=== PATIENT | female | born 1935 | race Caucasian/White ===

== ENCOUNTER 2018-03-18 14:34 | Inpatient (IN) | payer MEDICARE, OTHER ==
[~2018-03-18] VITALS: Ht 167.6 cm; Wt 86.9 kg
[2018-03-18] MEDS ORDERED: TIOT185 IH (15:04)
[2018-03-18] MEDS ORDERED: ALBU8HFA IH (15:04)
[2018-03-18] MEDS ORDERED: BUPR75 PO (15:04)
[2018-03-18] MEDS ORDERED: ATEN25TA PO (15:04)
[2018-03-18] MEDS ORDERED: MethylPREDNISolone SOD SUCC 125 MG/2 ML VIAL IVP ONE (16:00)
[2018-03-18] MEDS ORDERED: ALBUTEROL SULFATE 5 MG/ML 20 ML NEB SOLN [BULK] NEB ONE (16:00)
[2018-03-18] MEDS ORDERED: IPRATROPIUM BROMIDE 0.5 MG/2.5 ML NEB SOLUTION NEB ONE (16:00)
[2018-03-18] MEDS ORDERED: SODIUM CHLORIDE 0.9% 1,000 ML IV ONE (17:00)
[2018-03-18 17:07] LABS: BASOPHILS % (AUTO) 1.1 % (0.0-2.0); EOSINOPHILS % (AUTO) 0.4 % (1.0-6.0); HEMATOCRIT 37.1 % (36-46); HEMOGLOBIN 12.7 g/dL (12.0-16.0); LYMPHOCYTES # (AUTO) 1.1 K/uL (1.0-4.8); LYMPHOCYTES % (AUTO) 6.4 % (22.0-44.0); MEAN CORPUSCULAR HEMOGLOBIN 29.1 pg (26.0-34.0); MEAN CORPUSCULAR HGB CONC 34.3 G/dL (31.0-37.0); MEAN CORPUSCULAR VOLUME 85 fL (80-100); MONOCYTES # (AUTO) 1.3 K/uL (0.1-1.0); MONOCYTES % (AUTO) 7.9 % (2.0-9.0); NEUTROPHILS # (AUTO) 14.4 K/uL (1.8-7.7); NEUTROPHILS % (AUTO) 84.2 % (40.0-70.0); PLATELET COUNT (AUTO) 490 K/uL (150-450); RED BLOOD CELL COUNT(AUTO) 4.38 MIL/uL (4.00-5.20); RED CELL DISTRIBUTION WIDTH 14.1 % (11.5-14.5)
[2018-03-18 17:12] LABS: CALCIUM, TOTAL 9.6 mg/dL (8.8-10.5); CREATININE 3.73 mg/dL (0.60-1.30)
[2018-03-18] MEDS ORDERED: CefTRIAXone SODIUM 1 GM in DEXTROSE 5%-WATER 10 ML IV ONE (17:15)
[2018-03-18] MEDS ORDERED: AZITHROMYCIN 500 MG/NS 250 ML IV ONE (17:15)
[2018-03-18 17:18] LABS: ALBUMIN 2.7 g/dL (3.4-5.0); BILIRUBIN,TOTAL 1.7 mg/dL (0.1-1.0); TOTAL PROTEIN, SERUM 8.9 g/dL (6.4-8.2)
[2018-03-18] MEDS ORDERED: 0.9% SODIUM CHLORIDE 10 ML SYRINGE IVP PRN ×2 (18:15→22:00)
[2018-03-18] MEDS ORDERED: ACETAMINOPHEN 325 MG TABLET PO PRN (18:15)
[2018-03-18] MEDS ORDERED: POTASSIUM CHLORIDE 20 MEQ ER TABLET PO ONE (18:15)
[2018-03-18 18:49] VITALS: BP 113/55
[2018-03-18] MEDS ORDERED: ALBUTEROL SULFATE 2.5 MG/0.5 ML NEB SOLUTION NEB SCH (19:00)
[2018-03-18] MEDS ORDERED: IPRATROPIUM BROMIDE 0.5 MG/2.5 ML NEB SOLUTION NEB SCH (19:00)
[2018-03-18 20:29] VITALS: BP 106/50
[2018-03-18] MEDS: DOCUSATE SODIUM 100 MG CAPSULE PO SCH (22:00)
[2018-03-18] MEDS ORDERED: IPRATROPIUM BROMIDE 0.5 MG/2.5 ML NEB SOLUTION NEB PRN (22:00)
[2018-03-18] MEDS ORDERED: ALBUTEROL SULFATE HFA 90 MCG/PUFF 8 GM INHALER IH PRN (22:00)
[2018-03-18] MEDS ORDERED: ALBUTEROL SULFATE 2.5 MG/0.5 ML NEB SOLUTION NEB PRN (22:00)
[2018-03-18] MEDS: ZOLPIDEM TARTRATE 5 MG TABLET PO PRN (22:32)
[2018-03-18] MEDS: MethylPREDNISolone SOD SUCC 40 MG/ML VIAL IVP SCH (23:39)
[2018-03-18] MEDS: HEPARIN SODIUM,PORCINE 5,000 UNITS/ML VIAL SQ SCH (23:39)
[2018-03-19 00:47] VITALS: BP 108/55
[2018-03-19] MEDS: IPRATROPIUM BROMIDE 0.5 MG/2.5 ML NEB SOLUTION NEB SCH ×4 (02:39→20:02)
[2018-03-19] MEDS: ALBUTEROL SULFATE 2.5 MG/0.5 ML NEB SOLUTION NEB SCH ×4 (02:39→20:02)
[2018-03-19 04:11] VITALS: BP 113/57
[2018-03-19 07:37] VITALS: BP 124/58
[2018-03-19 07:37] LABS: BASOPHILS % (AUTO) 0.3 % (0.0-2.0); EOSINOPHILS % (AUTO) 0 % (1.0-6.0); HEMATOCRIT 32.8 % (36-46); HEMOGLOBIN 11.5 g/dL (12.0-16.0); LYMPHOCYTES # (AUTO) 0.6 K/uL (1.0-4.8); LYMPHOCYTES % (AUTO) 6.2 % (22.0-44.0); MEAN CORPUSCULAR HEMOGLOBIN 29.8 pg (26.0-34.0); MEAN CORPUSCULAR VOLUME 85 fL (80-100); MONOCYTES # (AUTO) 0.2 K/uL (0.1-1.0); MONOCYTES % (AUTO) 2.2 % (2.0-9.0); NEUTROPHILS # (AUTO) 8.4 K/uL (1.8-7.7); PLATELET COUNT (AUTO) 391 K/uL (150-450); RED BLOOD CELL COUNT(AUTO) 3.86 MIL/uL (4.00-5.20); RED CELL DISTRIBUTION WIDTH 13.5 % (11.5-14.5)
[2018-03-19 07:46] LABS: NEUTROPHILS % (AUTO) 91.3 % (40.0-70.0)
[2018-03-19 08:10] LABS: ALBUMIN 2.2 g/dL (3.4-5.0); BILIRUBIN,TOTAL 0.5 mg/dL (0.1-1.0); CREATININE 3.04 mg/dL (0.60-1.30); MAGNESIUM 1.6 mg/dL (1.80-2.40); POTASSIUM 3.6 mmol/L (3.5-5.1); TOTAL PROTEIN, SERUM 7.4 g/dL (6.4-8.2)
[2018-03-19] MEDS: TIOTROPIUM BROMIDE 18 MCG/INH HANDIHALER [5] IH SCH (09:00)
[2018-03-19] MEDS: DOCUSATE SODIUM 100 MG CAPSULE PO SCH ×2 (09:00→21:43)
[2018-03-19] MEDS: MethylPREDNISolone SOD SUCC 40 MG/ML VIAL IVP SCH ×2 (09:06→17:48)
[2018-03-19] MEDS: HEPARIN SODIUM,PORCINE 5,000 UNITS/ML VIAL SQ SCH ×2 (09:07→17:49)
[2018-03-19] MEDS: BuPROPion HCL 75 MG TABLET PO SCH ×3 (09:08→21:43)
[2018-03-19] MEDS: PANTOPRAZOLE SODIUM 40 MG/VIAL IVP SCH (09:08)
[2018-03-19] MEDS: ATENOLOL 25 MG TABLET PO SCH (09:09)
[2018-03-19 11:00] VITALS: BP 116/64
[2018-03-19] MEDS ORDERED: MAGNESIUM SULFATE 2 GM in DEXTROSE 5%-WATER 50 ML IV ONE (12:00)
[2018-03-19 12:17] LABS: APPEARANCE,URINE CLOUDY (CLEAR); CREATININE,URINE RANDOM 147.8 mg/dL (30.0-125.0); GLUCOSE, URINE (UA) NEGATIVE (NEGATIVE); KETONES,URINE NEGATIVE (NEGATIVE); LEUKOCYTE ESTERASE ,URINE MODERATE (NEGATIVE); NITRATE,URINE NEGATIVE (NEGATIVE); OCCULT BLOOD,URINE TRACE (NEGATIVE); PH,URINE 5.5 (5.0-8.0); PROTEIN,URINE NEGATIVE (NEGATIVE); SODIUM,URINE RANDOM 15 mmol/l (20-110)
[2018-03-19 12:21] LABS: BILIRUBIN,URINE PRELIM. POSITIVE (NEGATIVE)
[2018-03-19 12:28] LABS: BACTERIA,URINE Many /HPF (None Seen); SQUAMOUS EPITHELIAL CELL,UR Moderate /LPF (None Seen); WBC,URINE 26-50 /HPF (0-5)
[2018-03-19] MEDS ORDERED: SODIUM CHLORIDE 0.9% 250 ML IV ONE (13:20)
[2018-03-19 15:26] VITALS: BP 116/60
[2018-03-19] MEDS: CefTRIAXone SODIUM 1 GM in DEXTROSE 5%-WATER 10 ML IV SCH (17:47)
[2018-03-19] MEDS: AZITHROMYCIN 500 MG/NS 250 ML IV SCH (17:48)
[2018-03-19 21:20] VITALS: BP 125/57
[2018-03-20] VITALS (8 sets, daily range): BP systolic 114–152; BP diastolic 52–79
[2018-03-20] MEDS: HEPARIN SODIUM,PORCINE 5,000 UNITS/ML VIAL SQ SCH ×4 (00:11→23:37)
[2018-03-20] MEDS: MethylPREDNISolone SOD SUCC 40 MG/ML VIAL IVP SCH ×4 (00:11→23:36)
[2018-03-20] MEDS: IPRATROPIUM BROMIDE 0.5 MG/2.5 ML NEB SOLUTION NEB SCH ×4 (02:14→20:10)
[2018-03-20] MEDS: ALBUTEROL SULFATE 2.5 MG/0.5 ML NEB SOLUTION NEB SCH ×4 (02:15→20:10)
[2018-03-20] MEDS: ACETAMINOPHEN 325 MG TABLET PO PRN ×2 (05:10→18:43)
[2018-03-20 06:17] LABS: BASOPHILS % (AUTO) 0.5 % (0.0-2.0); EOSINOPHILS % (AUTO) 0 % (1.0-6.0); HEMATOCRIT 32.6 % (36-46); HEMOGLOBIN 11.2 g/dL (12.0-16.0); LYMPHOCYTES # (AUTO) 0.8 K/uL (1.0-4.8); LYMPHOCYTES % (AUTO) 5.1 % (22.0-44.0); MEAN CORPUSCULAR HEMOGLOBIN 29.5 pg (26.0-34.0); MEAN CORPUSCULAR HGB CONC 34.4 G/dL (31.0-37.0); MEAN CORPUSCULAR VOLUME 86 fL (80-100); MONOCYTES # (AUTO) 0.5 K/uL (0.1-1.0); MONOCYTES % (AUTO) 3.3 % (2.0-9.0); NEUTROPHILS # (AUTO) 13.7 K/uL (1.8-7.7); PLATELET COUNT (AUTO) 453 K/uL (150-450); RED BLOOD CELL COUNT(AUTO) 3.81 MIL/uL (4.00-5.20); RED CELL DISTRIBUTION WIDTH 13.9 % (11.5-14.5)
[2018-03-20 06:39] LABS: CALCIUM, TOTAL 9.7 mg/dL (8.8-10.5); CREATININE 2.13 mg/dL (0.60-1.30); MAGNESIUM 1.6 mg/dL (1.80-2.40); POTASSIUM 3.5 mmol/L (3.5-5.1)
[2018-03-20 06:49] LABS: NEUTROPHILS % (AUTO) 91.1 % (40.0-70.0)
[2018-03-20] MEDS: DOCUSATE SODIUM 100 MG CAPSULE PO SCH ×2 (07:48→19:54)
[2018-03-20] MEDS: ATENOLOL 25 MG TABLET PO SCH (07:48)
[2018-03-20] MEDS: BuPROPion HCL 75 MG TABLET PO SCH ×3 (07:48→19:54)
[2018-03-20] MEDS: PANTOPRAZOLE SODIUM 40 MG/VIAL IVP SCH (07:48)
[2018-03-20] MEDS ORDERED: MAGNESIUM SULFATE 3 GM in DEXTROSE 5%-WATER 100 ML IV ONE (09:30)
[2018-03-20] MEDS ORDERED: HYDROCODONE/ACETAMINOPHEN 5-325 MG TABLET PO ONE (09:45)
[2018-03-20] MEDS: TIOTROPIUM BROMIDE 18 MCG/INH HANDIHALER [5] IH SCH (10:57)
[2018-03-20] MEDS: SODIUM CHLORIDE 0.9% 1,000 ML IV SCH (14:19)
[2018-03-20] MEDS: AZITHROMYCIN 500 MG/NS 250 ML IV SCH (16:59)
[2018-03-20] MEDS: CefTRIAXone SODIUM 1 GM in DEXTROSE 5%-WATER 10 ML IV SCH (17:00)
[2018-03-20] MEDS: OXYGEN THERAPY IH SCH (19:57)
[2018-03-20] MEDS: ZOLPIDEM TARTRATE 5 MG TABLET PO PRN (23:37)
[2018-03-21] MEDS: ALBUTEROL SULFATE 2.5 MG/0.5 ML NEB SOLUTION NEB SCH ×4 (02:25→19:30)
[2018-03-21] MEDS: IPRATROPIUM BROMIDE 0.5 MG/2.5 ML NEB SOLUTION NEB SCH ×4 (02:25→19:30)
[2018-03-21 05:17] VITALS: BP 139/86
[2018-03-21] MEDS: SODIUM CHLORIDE 0.9% 1,000 ML IV SCH ×2 (05:37→20:42)
[2018-03-21 06:37] LABS: CALCIUM, TOTAL 9.2 mg/dL (8.8-10.5); CREATININE 1.6 mg/dL (0.60-1.30); MAGNESIUM 1.8 mg/dL (1.80-2.40); POTASSIUM 3.9 mmol/L (3.5-5.1)
[2018-03-21 07:30] LABS: BASOPHILS % (AUTO) 0.3 % (0.0-2.0); EOSINOPHILS % (AUTO) 0.2 % (1.0-6.0); HEMATOCRIT 34.9 % (36-46); HEMOGLOBIN 11.6 g/dL (12.0-16.0); LYMPHOCYTES # (AUTO) 0.6 K/uL (1.0-4.8); LYMPHOCYTES % (AUTO) 5.3 % (22.0-44.0); MEAN CORPUSCULAR HEMOGLOBIN 28.6 pg (26.0-34.0); MEAN CORPUSCULAR HGB CONC 33.2 G/dL (31.0-37.0); MEAN CORPUSCULAR VOLUME 86 fL (80-100); MONOCYTES # (AUTO) 0.5 K/uL (0.1-1.0); MONOCYTES % (AUTO) 4.6 % (2.0-9.0); NEUTROPHILS # (AUTO) 10.3 K/uL (1.8-7.7); PLATELET COUNT (AUTO) 417 K/uL (150-450); RED BLOOD CELL COUNT(AUTO) 4.05 MIL/uL (4.00-5.20)
[2018-03-21 07:31] LABS: NEUTROPHILS % (AUTO) 89.6 % (40.0-70.0)
[2018-03-21 07:41] VITALS: BP 133/76
[2018-03-21] MEDS: MethylPREDNISolone SOD SUCC 40 MG/ML VIAL IVP SCH ×3 (08:18→23:56)
[2018-03-21] MEDS: OXYGEN THERAPY IH SCH ×2 (08:18→19:31)
[2018-03-21] MEDS: HEPARIN SODIUM,PORCINE 5,000 UNITS/ML VIAL SQ SCH ×3 (08:18→23:56)
[2018-03-21] MEDS: ATENOLOL 25 MG TABLET PO SCH (09:22)
[2018-03-21] MEDS: PANTOPRAZOLE SODIUM 40 MG/VIAL IVP SCH (09:22)
[2018-03-21] MEDS: BuPROPion HCL 75 MG TABLET PO SCH ×3 (09:23→20:43)
[2018-03-21] MEDS: DOCUSATE SODIUM 100 MG CAPSULE PO SCH ×2 (09:23→20:43)
[2018-03-21] MEDS: TIOTROPIUM BROMIDE 18 MCG/INH HANDIHALER [5] IH SCH (09:24)
[2018-03-21] MEDS ORDERED: GuaiFENesin/D-METHORPHAN [SUGAR-FREE] 200-20MG/10 ML SYRUP UDCUP PO PRN (10:45)
[2018-03-21] MEDS: ACETAMINOPHEN 325 MG TABLET PO PRN (11:06)
[2018-03-21 11:25] VITALS: BP 143/82
[2018-03-21 15:57] VITALS: BP 143/79
[2018-03-21] MEDS: CefTRIAXone SODIUM 1 GM in DEXTROSE 5%-WATER 10 ML IV SCH (16:36)
[2018-03-21] MEDS: AZITHROMYCIN 500 MG/NS 250 ML IV SCH (16:41)
[2018-03-21] MEDS: ONDANSETRON HCL 4 MG/2 ML VIAL IVP PRN (18:35)
[2018-03-21 20:31] VITALS: BP 134/69
[2018-03-21] MEDS: ZOLPIDEM TARTRATE 5 MG TABLET PO PRN (20:43)
[2018-03-22 00:30] VITALS: BP 149/84
[2018-03-22] MEDS: IPRATROPIUM BROMIDE 0.5 MG/2.5 ML NEB SOLUTION NEB SCH ×4 (02:11→20:12)
[2018-03-22] MEDS: ALBUTEROL SULFATE 2.5 MG/0.5 ML NEB SOLUTION NEB SCH ×4 (02:11→20:12)
[2018-03-22 04:27] VITALS: BP 132/63
[2018-03-22 07:45] LABS: CALCIUM, TOTAL 8.8 mg/dL (8.8-10.5); CREATININE 1.43 mg/dL (0.60-1.30); MAGNESIUM 1.2 mg/dL (1.80-2.40); PHOSPHORUS 2.5 mg/dL (2.5-4.9); POTASSIUM 3.8 mmol/L (3.5-5.1)
[2018-03-22 07:49] VITALS: BP 142/81
[2018-03-22] MEDS: ATENOLOL 25 MG TABLET PO SCH (07:58)
[2018-03-22] MEDS: PredniSONE 20 MG TABLET PO SCH (07:59)
[2018-03-22] MEDS: BuPROPion HCL 75 MG TABLET PO SCH ×3 (07:59→20:44)
[2018-03-22] MEDS: TIOTROPIUM BROMIDE 18 MCG/INH HANDIHALER [5] IH SCH (07:59)
[2018-03-22] MEDS: PANTOPRAZOLE SODIUM 40 MG/VIAL IVP SCH (08:00)
[2018-03-22] MEDS: DOCUSATE SODIUM 100 MG CAPSULE PO SCH ×2 (08:00→20:44)
[2018-03-22] MEDS: HEPARIN SODIUM,PORCINE 5,000 UNITS/ML VIAL SQ SCH ×2 (08:00→16:10)
[2018-03-22] MEDS: OXYGEN THERAPY IH SCH ×2 (08:01→20:45)
[2018-03-22] MEDS: MethylPREDNISolone SOD SUCC 40 MG/ML VIAL IVP SCH (08:01)
[2018-03-22] MEDS ORDERED: MAGNESIUM SULFATE 3 GM in DEXTROSE 5%-WATER 100 ML IV ONE (09:15)
[2018-03-22] MEDS: SODIUM CHLORIDE 0.9% 1,000 ML IV SCH (09:36)
[2018-03-22] MEDS: ACETAMINOPHEN 325 MG TABLET PO PRN ×2 (09:36→13:58)
[2018-03-22 12:17] VITALS: BP 130/77
[2018-03-22 15:03] VITALS: BP 153/63
[2018-03-22] MEDS: CefTRIAXone SODIUM 1 GM in DEXTROSE 5%-WATER 10 ML IV SCH (16:10)
[2018-03-22] MEDS: AZITHROMYCIN 500 MG/NS 250 ML IV SCH (16:13)
[2018-03-22] MEDS: ONDANSETRON HCL 4 MG/2 ML VIAL IVP PRN (17:33)
[2018-03-22 19:36] VITALS: BP 140/83
[2018-03-22] MEDS: ZOLPIDEM TARTRATE 5 MG TABLET PO PRN (20:51)
[2018-03-23 00:06] VITALS: BP 130/74
[2018-03-23] MEDS: HEPARIN SODIUM,PORCINE 5,000 UNITS/ML VIAL SQ SCH ×3 (00:10→16:12)
[2018-03-23] MEDS: IPRATROPIUM BROMIDE 0.5 MG/2.5 ML NEB SOLUTION NEB SCH ×4 (02:00→20:39)
[2018-03-23] MEDS: ALBUTEROL SULFATE 2.5 MG/0.5 ML NEB SOLUTION NEB SCH ×4 (02:00→20:39)
[2018-03-23 04:20] VITALS: BP 132/76
[2018-03-23] MEDS: SODIUM CHLORIDE 0.9% 1,000 ML IV SCH (04:27)
[2018-03-23 07:18] LABS: CALCIUM, TOTAL 8.5 mg/dL (8.8-10.5); CREATININE 1.25 mg/dL (0.60-1.30); MAGNESIUM 1.4 mg/dL (1.80-2.40); PHOSPHORUS 2.3 mg/dL (2.5-4.9); POTASSIUM 3.4 mmol/L (3.5-5.1)
[2018-03-23 08:07] LABS: ORGANISM ID Not indicated.; S PNEUMO SOURCE Urine; STREP PNEUMONIAE AG URINE Negative (Negative); STREP.PNEUMO BODY FLUID CULT. Not Indicated
[2018-03-23 08:21] VITALS: BP 152/80
[2018-03-23] MEDS: OXYGEN THERAPY IH SCH ×2 (08:25→20:13)
[2018-03-23] MEDS: ATENOLOL 25 MG TABLET PO SCH (08:28)
[2018-03-23] MEDS: PredniSONE 20 MG TABLET PO SCH (08:28)
[2018-03-23] MEDS: DOCUSATE SODIUM 100 MG CAPSULE PO SCH ×2 (08:28→20:12)
[2018-03-23] MEDS: BuPROPion HCL 75 MG TABLET PO SCH ×3 (08:28→20:41)
[2018-03-23] MEDS: TIOTROPIUM BROMIDE 18 MCG/INH HANDIHALER [5] IH SCH (08:28)
[2018-03-23] MEDS: PANTOPRAZOLE SODIUM 40 MG/VIAL IVP SCH (08:28)
[2018-03-23] MEDS ORDERED: POTASSIUM CHLORIDE 20 MEQ ER TABLET PO ONE (08:45)
[2018-03-23] MEDS ORDERED: MAGNESIUM SULFATE 4 GM/WATER 100 ML IV ONE (08:45)
[2018-03-23 10:16] LABS: LEGIONELLA PNEUMO AG URINE Negative (Negative)
[2018-03-23] MEDS ORDERED: SODIUM PHOS,M-BASIC-D-BASIC 20 MMOL in DEXTROSE 5%-WATER 150 ML IV ONE (10:45)
[2018-03-23 12:11] VITALS: BP 144/72
[2018-03-23 15:08] VITALS: BP 125/70
[2018-03-23] MEDS: CefTRIAXone SODIUM 1 GM in DEXTROSE 5%-WATER 10 ML IV SCH (16:13)
[2018-03-23] MEDS: AZITHROMYCIN 500 MG/NS 250 ML IV SCH (17:12)
[2018-03-23] MEDS: ONDANSETRON HCL 4 MG/2 ML VIAL IVP PRN (17:57)
[2018-03-23 20:05] VITALS: BP 134/82
[2018-03-23] MEDS: ACETAMINOPHEN 325 MG TABLET PO PRN (20:09)
[2018-03-23] MEDS: ZOLPIDEM TARTRATE 5 MG TABLET PO PRN (20:12)
[2018-03-24 00:02] VITALS: BP 127/75
[2018-03-24] MEDS: HEPARIN SODIUM,PORCINE 5,000 UNITS/ML VIAL SQ SCH ×2 (00:23→08:33)
[2018-03-24] MEDS: ALBUTEROL SULFATE 2.5 MG/0.5 ML NEB SOLUTION NEB SCH ×3 (02:18→14:00)
[2018-03-24] MEDS: IPRATROPIUM BROMIDE 0.5 MG/2.5 ML NEB SOLUTION NEB SCH ×3 (02:19→14:00)
[2018-03-24 05:27] VITALS: BP 142/67
[2018-03-24 07:07] VITALS: BP 137/68
[2018-03-24] MEDS: OXYGEN THERAPY IH SCH (08:00)
[2018-03-24] MEDS: DOCUSATE SODIUM 100 MG CAPSULE PO SCH (08:33)
[2018-03-24] MEDS: TIOTROPIUM BROMIDE 18 MCG/INH HANDIHALER [5] IH SCH (08:33)
[2018-03-24] MEDS: PANTOPRAZOLE SODIUM 40 MG/VIAL IVP SCH (08:33)
[2018-03-24] MEDS: PredniSONE 20 MG TABLET PO SCH (08:34)
[2018-03-24] MEDS: BuPROPion HCL 75 MG TABLET PO SCH (08:34)
[2018-03-24] MEDS: ATENOLOL 25 MG TABLET PO SCH (08:34)
[2018-03-24 10:58] VITALS: BP 132/80
[2018-03-24] MEDS ORDERED: PRED10TA3 PO (12:25)
[2018-03-24] MEDS ORDERED: PRED20TA3 PO (12:27)
[2018-03-24] MEDS ORDERED: LEVO500 PO (12:30)
[2018-03-24] MEDS: ACETAMINOPHEN 325 MG TABLET PO PRN (12:53)
== END 2018-03-24 14:55 | disposition home or self-care (01) | DRG 682 ==
LOC: EDBD 14:38 → EMS 14:38 → 5S 17:36 → 5N 03-19 18:30
PROVIDERS: ADMIT Hospitalist; ATTEND Hospitalist
DX: N17.9 Acute kidney failure, unspecified (principal); J18.9 Pneumonia, unspecified organism; J96.20 Acute and chronic respiratory failure, unspecified whether with hypoxia or hypercapnia; J44.0 Chronic obstructive pulmonary disease with (acute) lower respiratory infection; J44.1 Chronic obstructive pulmonary disease with (acute) exacerbation; N39.0 Urinary tract infection, site not specified; E86.0 Dehydration; D35.01 Benign neoplasm of right adrenal gland; D64.9 Anemia, unspecified; E83.42 Hypomagnesemia; I12.9 Hypertensive chronic kidney disease with stage 1 through stage 4 chronic kidney disease, or unspecified chronic kidney disease; D71 Functional disorders of polymorphonuclear neutrophils; N18.9 Chronic kidney disease, unspecified; Z79.51 Long term (current) use of inhaled steroids; Z82.49 Family history of ischemic heart disease and other diseases of the circulatory system
CPT/HCPCS: 71250; 76770; 82570; 83735; 84100; 84132; 84300; 84540; 86480; 87015; 87040; 87086; 87206; 87449; 87899; 89050; 93005; 93306; 94640; 94644; 96374; 96375; 99285; C9113; J0456; J0696; J1644; J2405; J2920; J2930; J3475; J3490; J7030; J7050; J7060

== ENCOUNTER 2018-04-06 16:49 | Emergency (ER) | payer MEDICARE, OTHER ==
[~2018-04-06] VITALS: Ht 167.6 cm; Wt 83.6 kg
[~2018-04-06 16:49] MED LIST: ALBU8HFA IH; ATEN25TA PO; BUPR75 PO; KDUR10 PO; LEVO500 PO; LORA1TAB3 PO; PRED20TA3 PO; TIOT185 IH; [UNRECOGNIZED DRUG - CODE] PO
[2018-04-06 18:55] VITALS: BP 141/74
== END 2018-04-06 19:03 | disposition home or self-care (01) ==
LOC: EMS 16:50
DX: L03.115 Cellulitis of right lower limb (principal); R23.8 Other skin changes; I10 Essential (primary) hypertension; J44.9 Chronic obstructive pulmonary disease, unspecified; Z79.899 Other long term (current) drug therapy
CPT/HCPCS: 10060; 99283

== ENCOUNTER 2018-06-12 15:02 | Emergency (ER) | payer MEDICARE, OTHER ==
[~2018-06-12] VITALS: Ht 167.6 cm; Wt 81.8 kg
[~2018-06-12 15:02] MED LIST changes: -LEVO500 PO; -PRED20TA3 PO; -[UNRECOGNIZED DRUG - CODE] PO
[2018-06-12] MEDS ORDERED: SERT50TA12 PO (15:33)
[2018-06-12] MEDS ORDERED: LOSA1TAB37 PO (15:33)
[2018-06-12] MEDS ORDERED: OMEP20 PO (15:33)
[2018-06-12] MEDS ORDERED: ATEN50TA PO (15:33)
[2018-06-12] MEDS ORDERED: ADV500 IH (15:33)
[2018-06-12] MEDS ORDERED: TIOT185 IH (15:33)
[2018-06-12 16:21] VITALS: BP 115/65
== END 2018-06-12 16:26 | disposition left against medical advice (07) ==
LOC: EMS 15:04
DX: J44.9 Chronic obstructive pulmonary disease, unspecified (principal); I10 Essential (primary) hypertension; Z79.899 Other long term (current) drug therapy
CPT/HCPCS: 99283

== ENCOUNTER 2018-06-13 14:15 | Emergency (ER) | payer MEDICARE, OTHER ==
[~2018-06-13] VITALS: Ht 167.6 cm; Wt 81.8 kg
[~2018-06-13 14:15] MED LIST changes: +ADV500 IH; -ALBU8HFA IH; -ATEN25TA PO; +ATEN50TA PO; -BUPR75 PO; -KDUR10 PO; -LORA1TAB3 PO; +LOSA1TAB37 PO; +OMEP20 PO; +SERT50TA12 PO
[2018-06-13] MEDS ORDERED: 0.9% SODIUM CHLORIDE 10 ML SYRINGE IVP PRN (16:15)
[2018-06-13 17:02] LABS: BASOPHILS % (AUTO) 0.9 % (0.0-2.0); EOSINOPHILS % (AUTO) 5.3 % (1.0-6.0); HEMATOCRIT 39.9 % (36-46); HEMOGLOBIN 13.6 g/dL (12.0-16.0); LYMPHOCYTES # (AUTO) 1.5 K/uL (1.0-4.8); LYMPHOCYTES % (AUTO) 15.7 % (22.0-44.0); MEAN CORPUSCULAR HEMOGLOBIN 30.2 pg (26.0-34.0); MEAN CORPUSCULAR HGB CONC 34.2 G/dL (31.0-37.0); MEAN CORPUSCULAR VOLUME 88 fL (80-100); MONOCYTES # (AUTO) 0.9 K/uL (0.1-1.0); MONOCYTES % (AUTO) 9.2 % (2.0-9.0); NEUTROPHILS # (AUTO) 6.6 K/uL (1.8-7.7); NEUTROPHILS % (AUTO) 68.9 % (40.0-70.0); PLATELET COUNT (AUTO) 451 K/uL (150-450); RED BLOOD CELL COUNT(AUTO) 4.51 MIL/uL (4.00-5.20); RED CELL DISTRIBUTION WIDTH 14.5 % (11.5-14.5)
[2018-06-13 17:08] LABS: PROTHROMBIN TIME 10.7 SEC (9.4-11.6)
[2018-06-13] MEDS ORDERED: LEVOFLOXACIN 500 MG/D5% WATER 100 ML IV ONE (17:15)
[2018-06-13] MEDS ORDERED: DEXAMETHASONE SOD PHOS 4 MG/ML 5 ML VIAL IVP ONE (17:15)
[2018-06-13] MEDS ORDERED: IPRATROPIUM BROMIDE 0.5 MG/2.5 ML NEB SOLUTION NEB ONE (17:15)
[2018-06-13] MEDS ORDERED: ALBUTEROL SULFATE 2.5 MG/0.5 ML NEB SOLUTION NEB ONE (17:15)
[2018-06-13 17:30] LABS: APPEARANCE,URINE CLOUDY (CLEAR); GLUCOSE, URINE (UA) NEGATIVE (NEGATIVE); KETONES,URINE NEGATIVE (NEGATIVE); LEUKOCYTE ESTERASE ,URINE SMALL (NEGATIVE); NITRATE,URINE NEGATIVE (NEGATIVE); OCCULT BLOOD,URINE NEGATIVE (NEGATIVE); PROTEIN,URINE NEGATIVE (NEGATIVE); UROBILINOGEN,URINE 0.2 mg/dL (<=1.0)
[2018-06-13 17:31] LABS: BILIRUBIN,URINE PRELIM. POSITIVE (NEGATIVE)
[2018-06-13 17:34] LABS: RBC,URINE None Seen /HPF (0-2)
[2018-06-13 17:35] LABS: BACTERIA,URINE Moderate /HPF (None Seen); SQUAMOUS EPITHELIAL CELL,UR Many /LPF (None Seen)
[2018-06-13 17:36] LABS: ANION GAP 10 mmol/L (8-16); CALCIUM, TOTAL 10.2 mg/dL (8.8-10.5); CARBON DIOXIDE 28 mmol/L (22-29); CHLORIDE 98 mmol/L (98-107); CREATININE 2.09 mg/dL (0.60-1.30); GLOMERULAR FILTR. RATE CALC 23 mL/min (>60); GLUCOSE,RANDOM 99 mg/dL (70-110); POTASSIUM 3.5 mmol/L (3.5-5.1); SODIUM SERUM 136 mmol/L (136-145); UREA NITROGEN, BLOOD 33 mg/dL (7-18)
[2018-06-13 17:44] LABS: LACTIC ACID 1.3 mmol/L (0.4-2.0)
[2018-06-13 17:55] LABS: B-TYPE NATRIURETIC PEPTIDE 131 pg/mL (0-100)
[2018-06-13 18:02] LABS: ALANINE AMINOTRANSFERASE 24 U/L (12-78); ALBUMIN 3.2 g/dL (3.4-5.0); ALKALINE PHOSPHATASE 72 U/L (46-116); ASPARTATE AMINOTRANSFERASE 21 U/L (15-37); BILIRUBIN,TOTAL 0.5 mg/dL (0.1-1.0); CREATINE KINASE MB 2.3 ng/mL (0-5); CREATINE KINASE, TOTAL 103 U/L (26-192); TOTAL PROTEIN, SERUM 7.7 g/dL (6.4-8.2)
[2018-06-13 20:00] VITALS: BP 108/60
== END 2018-06-13 20:00 | disposition home or self-care (01) ==
LOC: EMS 14:16
DX: J44.9 Chronic obstructive pulmonary disease, unspecified (principal); J18.9 Pneumonia, unspecified organism; I10 Essential (primary) hypertension; F03.90 Unspecified dementia, unspecified severity, without behavioral disturbance, psychotic disturbance, mood disturbance, and anxiety
CPT/HCPCS: 36415; 71045; 80053; 81001; 82550; 82553; 83605; 83880; 84484; 85025; 85610; 85730; 87040; 87086; 93005; 94060; 94640; 96365; 96375; 99285; J1100; J1956

== ENCOUNTER 2018-09-25 08:48 | Emergency (ER) | payer MEDICARE, OTHER ==
[~2018-09-25] VITALS: Ht 165.1 cm; Wt 68.2 kg
[2018-09-25] MEDS ORDERED: BENZ-51 PO (09:05)
[2018-09-25] MEDS ORDERED: TIOT185 IH (09:05)
[2018-09-25] MEDS ORDERED: FURO20 PO (09:05)
[2018-09-25] MEDS ORDERED: ALBU90AE IH (09:05)
[2018-09-25] MEDS ORDERED: MELA3TAB66 PO (09:05)
[2018-09-25] MEDS ORDERED: IPRATROPIUM BROMIDE 0.5 MG/2.5 ML NEB SOLUTION NEB ONE ×2 (09:15→11:45)
[2018-09-25] MEDS ORDERED: ALBUTEROL SULFATE 2.5 MG/0.5 ML NEB SOLUTION NEB ONE (09:15)
[2018-09-25 10:22] LABS: BASOPHILS % (AUTO) 1.2 % (0.0-2.0); EOSINOPHILS % (AUTO) 13.4 % (1.0-6.0); HEMATOCRIT 39.3 % (36-46); HEMOGLOBIN 13.5 g/dL (12.0-16.0); LYMPHOCYTES # (AUTO) 1.3 K/uL (1.0-4.8); LYMPHOCYTES % (AUTO) 13.9 % (22.0-44.0); MEAN CORPUSCULAR HEMOGLOBIN 29.6 pg (26.0-34.0); MEAN CORPUSCULAR HGB CONC 34.4 G/dL (31.0-37.0); MEAN CORPUSCULAR VOLUME 86 fL (80-100); MONOCYTES # (AUTO) 0.9 K/uL (0.1-1.0); MONOCYTES % (AUTO) 9.2 % (2.0-9.0); NEUTROPHILS # (AUTO) 5.9 K/uL (1.8-7.7); NEUTROPHILS % (AUTO) 62.3 % (40.0-70.0); PLATELET COUNT (AUTO) 392 K/uL (150-450); RED BLOOD CELL COUNT(AUTO) 4.56 MIL/uL (4.00-5.20); RED CELL DISTRIBUTION WIDTH 15.1 % (11.5-14.5)
[2018-09-25 10:29] LABS: CREATININE 1.61 mg/dL (0.60-1.30); POTASSIUM 3.7 mmol/L (3.5-5.1)
[2018-09-25 10:39] LABS: ALBUMIN 3.5 g/dL (3.4-5.0); BILIRUBIN,TOTAL 0.7 mg/dL (0.1-1.0); TOTAL PROTEIN, SERUM 7.3 g/dL (6.4-8.2)
[2018-09-25] MEDS ORDERED: MethylPREDNISolone SOD SUCC 125 MG/2 ML VIAL IVP ONE (11:45)
[2018-09-25] MEDS ORDERED: ALBUTEROL SULFATE 5 MG/ML 20 ML NEB SOLN [BULK] NEB ONE (11:45)
[2018-09-25] MEDS ORDERED: 0.9% SODIUM CHLORIDE 15 ML NEB SOLUTION NEB ONE (11:48)
[2018-09-25 11:52] LABS: GLUCOSE, URINE (UA) NEGATIVE (NEGATIVE); KETONES,URINE TRACE mg/dL (NEGATIVE); LEUKOCYTE ESTERASE ,URINE TRACE (NEGATIVE); NITRATE,URINE NEGATIVE (NEGATIVE); OCCULT BLOOD,URINE NEGATIVE (NEGATIVE); PH,URINE 5.5 (5.0-8.0); PROTEIN,URINE POS 1+ (NEGATIVE); UROBILINOGEN,URINE 0.2 mg/dL (<=1.0)
[2018-09-25 11:55] LABS: APPEARANCE,URINE HAZY (CLEAR); BILIRUBIN,URINE PRELIM. POSITIVE (NEGATIVE)
[2018-09-25 11:56] LABS: BACTERIA,URINE None Seen /HPF (None Seen); RBC,URINE None Seen /HPF (0-2); SQUAMOUS EPITHELIAL CELL,UR Many /LPF (None Seen); WBC,URINE 0-2 /HPF (0-5)
[2018-09-25 14:19] VITALS: BP 128/69
== END 2018-09-25 14:21 | disposition home or self-care (01) ==
LOC: EMS 08:50
DX: J44.1 Chronic obstructive pulmonary disease with (acute) exacerbation (principal); I10 Essential (primary) hypertension; Z79.899 Other long term (current) drug therapy
CPT/HCPCS: 36415; 71045; 80053; 81001; 83880; 84484; 85025; 87040; 93005; 94640; 94644; 96374; 99285; J2930

== ENCOUNTER 2019-01-28 09:33 | Emergency (ER) | payer MEDICARE, OTHER ==
[~2019-01-28] VITALS: Ht 167.6 cm; Wt 74.1 kg
[~2019-01-28 09:33] MED LIST changes: +ALBU90AE IH; +BENZ-51 PO; +FURO20 PO; +MELA3TAB66 PO
[2019-01-28] MEDS ORDERED: LOSA1TAB42 PO (09:59)
[2019-01-28] MEDS ORDERED: 0.9% SODIUM CHLORIDE 15 ML NEB SOLUTION NEB ONE (11:29)
[2019-01-28] MEDS ORDERED: IPRATROPIUM BROMIDE 0.5 MG/2.5 ML NEB SOLUTION NEB ONE (11:30)
[2019-01-28] MEDS ORDERED: ALBUTEROL SULFATE 5 MG/ML 20 ML NEB SOLN [BULK] NEB ONE (11:30)
[2019-01-28] MEDS ORDERED: SODIUM CHLORIDE 0.9% 1,000 ML IV ONE (11:45)
[2019-01-28 12:25] LABS: CREATININE 2.11 mg/dL (0.60-1.30); POTASSIUM 4.3 mmol/L (3.5-5.1)
[2019-01-28 12:36] LABS: ALBUMIN 2.8 g/dL (3.4-5.0); TOTAL PROTEIN, SERUM 7.3 g/dL (6.4-8.2)
[2019-01-28 12:52] LABS: BASOPHILS % (AUTO) 0.3 % (0.0-2.0); EOSINOPHILS % (AUTO) 0.4 % (1.0-6.0); HEMATOCRIT 37.2 % (36-46); HEMOGLOBIN 12.5 g/dL (12.0-16.0); LYMPHOCYTES # (AUTO) 1.2 K/uL (1.0-4.8); LYMPHOCYTES % (AUTO) 11.3 % (22.0-44.0); MEAN CORPUSCULAR HEMOGLOBIN 30.3 pg (26.0-34.0); MEAN CORPUSCULAR HGB CONC 33.7 G/dL (31.0-37.0); MEAN CORPUSCULAR VOLUME 90 fL (80-100); MONOCYTES # (AUTO) 1.4 K/uL (0.1-1.0); MONOCYTES % (AUTO) 13.9 % (2.0-9.0); NEUTROPHILS # (AUTO) 7.6 K/uL (1.8-7.7); NEUTROPHILS % (AUTO) 74.1 % (40.0-70.0); PLATELET COUNT (AUTO) 281 K/uL (150-450); RED BLOOD CELL COUNT(AUTO) 4.13 MIL/uL (4.00-5.20); RED CELL DISTRIBUTION WIDTH 14.7 % (11.5-14.5)
[2019-01-28] MEDS ORDERED: AZITHROMYCIN 250 MG TABLET PO ONE (13:30)
[2019-01-28] MEDS ORDERED: PredniSONE 20 MG TABLET PO ONE (13:30)
[2019-01-28 17:05] VITALS: BP 112/78
== END 2019-01-28 17:10 | disposition home or self-care (01) ==
LOC: EMS 09:33
DX: J44.1 Chronic obstructive pulmonary disease with (acute) exacerbation (principal); J20.9 Acute bronchitis, unspecified; N28.9 Disorder of kidney and ureter, unspecified; R42 Dizziness and giddiness; I10 Essential (primary) hypertension; Z79.899 Other long term (current) drug therapy
CPT/HCPCS: 36415; 71045; 80053; 85025; 93005; 94644; 96360; 96361; 99285; J7030; J7512

== ENCOUNTER 2019-02-11 19:43 | Emergency (ER) | payer MEDICARE, OTHER ==
[~2019-02-11] VITALS: Ht 167.6 cm; Wt 72.7 kg
[~2019-02-11 19:43] MED LIST changes: -LOSA1TAB37 PO; +LOSA1TAB42 PO; -SERT50TA12 PO
[2019-02-11] MEDS ORDERED: TRAM50TA4 PO (20:01)
[2019-02-11] MEDS ORDERED: CLON.5 PO (20:01)
[2019-02-11] MEDS ORDERED: SERT50TA12 PO (20:01)
[2019-02-11] MEDS ORDERED: FURO20 PO (20:04)
[2019-02-11 20:15] LABS: BASOPHILS % (AUTO) 0.7 % (0.0-2.0); EOSINOPHILS % (AUTO) 1.3 % (1.0-6.0); HEMATOCRIT 36.9 % (36-46); HEMOGLOBIN 12.5 g/dL (12.0-16.0); LYMPHOCYTES # (AUTO) 1.5 K/uL (1.0-4.8); MEAN CORPUSCULAR HEMOGLOBIN 29.5 pg (26.0-34.0); MEAN CORPUSCULAR HGB CONC 33.9 G/dL (31.0-37.0); MEAN CORPUSCULAR VOLUME 87 fL (80-100); MONOCYTES % (AUTO) 12.3 % (2.0-9.0); NEUTROPHILS # (AUTO) 5.4 K/uL (1.8-7.7); NEUTROPHILS % (AUTO) 66.7 % (40.0-70.0); PLATELET COUNT (AUTO) 342 K/uL (150-450); RED BLOOD CELL COUNT(AUTO) 4.24 MIL/uL (4.00-5.20); RED CELL DISTRIBUTION WIDTH 14.6 % (11.5-14.5)
[2019-02-11 20:31] LABS: PROTHROMBIN TIME 10.3 SEC (9.4-11.6)
[2019-02-11 20:39] LABS: CALCIUM, TOTAL 9.1 mg/dL (8.8-10.5); CREATININE 1.34 mg/dL (0.60-1.30); POTASSIUM 3.5 mmol/L (3.5-5.1)
[2019-02-11 20:46] LABS: ALBUMIN 2.8 g/dL (3.4-5.0); BILIRUBIN,TOTAL 0.4 mg/dL (0.1-1.0); TOTAL PROTEIN, SERUM 6.8 g/dL (6.4-8.2)
[2019-02-11 21:52] VITALS: BP 140/80
== END 2019-02-11 22:36 | disposition home or self-care (01) ==
LOC: EMS 19:44
DX: R60.0 Localized edema (principal); I10 Essential (primary) hypertension; J44.9 Chronic obstructive pulmonary disease, unspecified; F03.90 Unspecified dementia, unspecified severity, without behavioral disturbance, psychotic disturbance, mood disturbance, and anxiety
CPT/HCPCS: 93005

== ENCOUNTER 2019-04-14 12:37 | Emergency (ER) | payer MEDICARE, OTHER ==
[~2019-04-14] VITALS: Ht 167.6 cm; Wt 75.8 kg
[~2019-04-14 12:37] MED LIST changes: +ACET-66 PO; -ALBU90AE IH; +ALBU90AE PUFF; -BENZ-51 PO; +DEXT15CA17 PO; -MELA3TAB66 PO; +TRAM50TA4 PO
[2019-04-14] MEDS ORDERED: ASPIRIN 81 MG CHEWABLE TABLET PO ONE (13:00)
[2019-04-14] MEDS ORDERED: ALBUTEROL SULFATE 5 MG/ML 20 ML NEB SOLN [BULK] NEB ONE (13:15)
[2019-04-14] MEDS ORDERED: MethylPREDNISolone SOD SUCC 125 MG/2 ML VIAL IVP ONE (13:15)
[2019-04-14] MEDS ORDERED: IPRATROPIUM BROMIDE 0.5 MG/2.5 ML NEB SOLUTION NEB ONE (13:15)
[2019-04-14 13:33] LABS: BASOPHILS % (AUTO) 0.7 % (0.0-2.0); EOSINOPHILS % (AUTO) 6.5 % (1.0-6.0); HEMATOCRIT 41.7 % (36-46); HEMOGLOBIN 13.6 g/dL (12.0-16.0); LYMPHOCYTES # (AUTO) 1.4 K/uL (1.0-4.8); LYMPHOCYTES % (AUTO) 20.2 % (22.0-44.0); MEAN CORPUSCULAR HEMOGLOBIN 29.9 pg (26.0-34.0); MEAN CORPUSCULAR HGB CONC 32.6 G/dL (31.0-37.0); MEAN CORPUSCULAR VOLUME 92 fL (80-100); MONOCYTES # (AUTO) 0.5 K/uL (0.1-1.0); NEUTROPHILS # (AUTO) 4.4 K/uL (1.8-7.7); NEUTROPHILS % (AUTO) 65.6 % (40.0-70.0); PLATELET COUNT (AUTO) 249 K/uL (150-450); RED BLOOD CELL COUNT(AUTO) 4.55 MIL/uL (4.00-5.20); RED CELL DISTRIBUTION WIDTH 15.1 % (11.5-14.5)
[2019-04-14 13:55] LABS: CALCIUM, TOTAL 10.1 mg/dL (8.8-10.5); CREATININE 1.4 mg/dL (0.60-1.30); POTASSIUM 3.5 mmol/L (3.5-5.1)
[2019-04-14 14:20] LABS: ALBUMIN 3.7 g/dL (3.4-5.0); BILIRUBIN,TOTAL 0.6 mg/dL (0.1-1.0); TOTAL PROTEIN, SERUM 7.1 g/dL (6.4-8.2)
[2019-04-14] MEDS ORDERED: ATENOLOL 50 MG TABLET PO ONE (15:30)
[2019-04-14 16:20] VITALS: BP 153/73
== END 2019-04-14 16:20 | disposition home or self-care (01) ==
LOC: EMS 12:37
DX: J44.9 Chronic obstructive pulmonary disease, unspecified (principal); I10 Essential (primary) hypertension; Z79.899 Other long term (current) drug therapy
CPT/HCPCS: 71045; 80053; 82550; 83880; 84484; 85025; 93005; 94644; 96374; 99285; J2930

== ENCOUNTER 2019-07-27 11:35 | Emergency (ER) | payer MEDICARE, OTHER ==
[~2019-07-27] VITALS: Ht 165.1 cm; Wt 68.2 kg
[2019-07-27] MEDS ORDERED: IPRATROPIUM BROMIDE 0.5 MG/2.5 ML NEB SOLUTION NEB ONE (12:00)
[2019-07-27] MEDS ORDERED: ALBUTEROL SULFATE 5 MG/ML 20 ML NEB SOLN [BULK] NEB ONE (12:00)
[2019-07-27] MEDS ORDERED: MethylPREDNISolone SOD SUCC 125 MG/2 ML VIAL IVP ONE (12:00)
[2019-07-27] MEDS ORDERED: 0.9% SODIUM CHLORIDE 15 ML NEB SOLUTION NEB ONE (12:08)
[2019-07-27 12:58] LABS: BASOPHILS % (AUTO) 0.9 % (0.0-2.0); EOSINOPHILS % (AUTO) 11.1 % (1.0-6.0); HEMATOCRIT 37.9 % (36-46); HEMOGLOBIN 12.8 g/dL (12.0-16.0); LYMPHOCYTES # (AUTO) 1.5 K/uL (1.0-4.8); LYMPHOCYTES % (AUTO) 18.3 % (22.0-44.0); MEAN CORPUSCULAR HEMOGLOBIN 29.2 pg (26.0-34.0); MEAN CORPUSCULAR HGB CONC 33.8 G/dL (31.0-37.0); MEAN CORPUSCULAR VOLUME 86 fL (80-100); MONOCYTES # (AUTO) 0.9 K/uL (0.1-1.0); MONOCYTES % (AUTO) 11.2 % (2.0-9.0); NEUTROPHILS # (AUTO) 4.8 K/uL (1.8-7.7); NEUTROPHILS % (AUTO) 58.5 % (40.0-70.0); PLATELET COUNT (AUTO) 391 K/uL (150-450); RED BLOOD CELL COUNT(AUTO) 4.39 MIL/uL (4.00-5.20)
[2019-07-27 13:06] LABS: CALCIUM, TOTAL 9.1 mg/dL (8.8-10.5); CREATININE 1.72 mg/dL (0.60-1.30); POTASSIUM 3.1 mmol/L (3.5-5.1)
[2019-07-27 13:12] LABS: ALBUMIN 3.1 g/dL (3.4-5.0); BILIRUBIN,TOTAL 0.8 mg/dL (0.1-1.0); TOTAL PROTEIN, SERUM 6.8 g/dL (6.4-8.2)
[2019-07-27 14:50] LABS: MAGNESIUM 1.7 mg/dL (1.80-2.40)
[2019-07-27] MEDS ORDERED: ACETAMINOPHEN 325 MG TABLET PO ONE (15:15)
[2019-07-27] MEDS ORDERED: MAGNESIUM SULFATE 2 GM/WATER 50 ML IV ONE (15:15)
[2019-07-27] MEDS ORDERED: POTASSIUM CHLORIDE 20 MEQ ER TABLET PO ONE (15:15)
[2019-07-27 16:24] LABS: APPEARANCE,URINE CLEAR (CLEAR); BILIRUBIN,URINE NEGATIVE (NEGATIVE); GLUCOSE, URINE (UA) NEGATIVE (NEGATIVE); KETONES,URINE NEGATIVE (NEGATIVE); LEUKOCYTE ESTERASE ,URINE TRACE (NEGATIVE); NITRATE,URINE NEGATIVE (NEGATIVE); OCCULT BLOOD,URINE NEGATIVE (NEGATIVE); PH,URINE 5.5 (5.0-8.0); PROTEIN,URINE NEGATIVE (NEGATIVE)
[2019-07-27 17:44] VITALS: BP 135/74
[2019-07-27 18:17] LABS: BACTERIA,URINE Few /HPF (None Seen); RBC,URINE None Seen /HPF (0-2); SQUAMOUS EPITHELIAL CELL,UR Moderate /LPF (None Seen)
== END 2019-07-27 18:50 | disposition home or self-care (01) ==
LOC: EMS 11:36
DX: J44.1 Chronic obstructive pulmonary disease with (acute) exacerbation (principal); E87.6 Hypokalemia; N28.9 Disorder of kidney and ureter, unspecified; I10 Essential (primary) hypertension; Z79.899 Other long term (current) drug therapy
CPT/HCPCS: 36415; 71045; 80053; 81001; 83735; 83880; 84484; 85025; 93005; 94644; 96365; 96366; 96375; 99285; J2930; J3475; 94060

== ENCOUNTER 2019-09-10 12:54 | Inpatient (IN) | payer MEDICARE, OTHER ==
[~2019-09-10] VITALS: Ht 167.6 cm; Wt 75.0 kg
[2019-09-10] MEDS ORDERED: AMLO10TA7 PO (13:13)
[2019-09-10] MEDS ORDERED: FORM20VI NEB (13:13)
[2019-09-10] MEDS ORDERED: ATOR20TA86 PO (13:13)
[2019-09-10] MEDS ORDERED: FLUT16H NASAL (13:13)
[2019-09-10] MEDS ORDERED: IPRATROPIUM BROMIDE 0.5 MG/2.5 ML NEB SOLUTION NEB ONE (13:13)
[2019-09-10] MEDS ORDERED: HYDR25TA PO (13:13)
[2019-09-10] MEDS ORDERED: ALBUTEROL SULFATE 2.5 MG/0.5 ML NEB SOLUTION NEB ONE (13:13)
[2019-09-10] MEDS ORDERED: PredniSONE 20 MG TABLET PO ONE (13:30)
[2019-09-10] MEDS ORDERED: AZITHROMYCIN 250 MG TABLET PO ONE (13:30)
[2019-09-10 14:21] LABS: BASOPHILS % (AUTO) 0.6 % (0.0-2.0); EOSINOPHILS % (AUTO) 2.7 % (1.0-6.0); HEMATOCRIT 38.6 % (36-46); HEMOGLOBIN 13.2 g/dL (12.0-16.0); LYMPHOCYTES # (AUTO) 1.2 K/uL (1.0-4.8); LYMPHOCYTES % (AUTO) 12.5 % (22.0-44.0); MEAN CORPUSCULAR HGB CONC 34.2 G/dL (31.0-37.0); MEAN CORPUSCULAR VOLUME 88 fL (80-100); MONOCYTES # (AUTO) 0.9 K/uL (0.1-1.0); MONOCYTES % (AUTO) 9.9 % (2.0-9.0); NEUTROPHILS # (AUTO) 6.9 K/uL (1.8-7.7); NEUTROPHILS % (AUTO) 74.3 % (40.0-70.0); PLATELET COUNT (AUTO) 430 K/uL (150-450); RED CELL DISTRIBUTION WIDTH 15.3 % (11.5-14.5)
[2019-09-10 14:35] LABS: CALCIUM, TOTAL 11.1 mg/dL (8.8-10.5); CREATININE 2.17 mg/dL (0.60-1.30); POTASSIUM 4.4 mmol/L (3.5-5.1)
[2019-09-10] MEDS ORDERED: CefTRIAXone 1 GM/DEXTROSE 50 ML IV ONE (14:45)
[2019-09-10 14:49] LABS: ALBUMIN 3.1 g/dL (3.4-5.0); BILIRUBIN,TOTAL 0.4 mg/dL (0.1-1.0); THYROID STIMULATING HORMONE 1.12 uIU/mL (0.36-3.74)
[2019-09-10] MEDS ORDERED: ACETAMINOPHEN 325 MG TABLET PO PRN ×2 (15:15→22:15)
[2019-09-10] MEDS: ONDANSETRON HCL 4 MG/2 ML VIAL IVP PRN (16:47)
[2019-09-10 20:01] VITALS: BP 142/71
[2019-09-10] MEDS ORDERED: IPRATROPIUM BROMIDE 0.5 MG/2.5 ML NEB SOLUTION NEB PRN (22:15)
[2019-09-10] MEDS ORDERED: TraMADol HCL 50 MG TABLET PO PRN (22:15)
[2019-09-10] MEDS ORDERED: FUROSEMIDE 20 MG TABLET PO PRN (22:15)
[2019-09-10] MEDS ORDERED: MAGNESIUM HYDROXIDE SUSPENSION 30 ML UDCUP PO PRN (22:15)
[2019-09-10] MEDS ORDERED: ALBUTEROL SULFATE 2.5 MG/0.5 ML NEB SOLUTION NEB PRN (22:15)
[2019-09-10] MEDS ORDERED: BISACODYL 10 MG RECTAL RECTAL SUPPOSITORY PR PRN (22:15)
[2019-09-10] MEDS ORDERED: MORPHINE SULFATE 2 MG/ML SYRINGE IVP PRN (22:15)
[2019-09-10] MEDS: HEPARIN SODIUM,PORCINE 5,000 UNITS/ML VIAL SQ SCH (23:35)
[2019-09-10] MEDS: MethylPREDNISolone SOD SUCC 125 MG/2 ML VIAL IVP SCH (23:35)
[2019-09-10 23:42] VITALS: BP 101/50
[2019-09-11] MEDS: IPRATROPIUM BROMIDE 0.5 MG/2.5 ML NEB SOLUTION NEB SCH ×6 (03:36→23:09)
[2019-09-11] MEDS: ALBUTEROL SULFATE 2.5 MG/0.5 ML NEB SOLUTION NEB SCH ×6 (03:36→23:09)
[2019-09-11] MEDS: OxyCODONE HCL/ACETAMINOPHEN 5-325 MG TABLET PO PRN (04:31)
[2019-09-11 05:16] VITALS: BP 118/62
[2019-09-11] MEDS ORDERED: INFLUENZA VIRUS VACCINE QVS 2019-20 (3YR+)/PF 60 MCG/0.5 ML SYRINGE IM ONE (06:00)
[2019-09-11] MEDS: MethylPREDNISolone SOD SUCC 125 MG/2 ML VIAL IVP SCH ×4 (06:40→23:19)
[2019-09-11 06:59] LABS: BASOPHILS % (AUTO) 0.2 % (0.0-2.0); EOSINOPHILS % (AUTO) 0 % (1.0-6.0); HEMATOCRIT 36.1 % (36-46); HEMOGLOBIN 12.4 g/dL (12.0-16.0); LYMPHOCYTES # (AUTO) 0.6 K/uL (1.0-4.8); LYMPHOCYTES % (AUTO) 7.7 % (22.0-44.0); MEAN CORPUSCULAR HEMOGLOBIN 30.6 pg (26.0-34.0); MEAN CORPUSCULAR HGB CONC 34.3 G/dL (31.0-37.0); MEAN CORPUSCULAR VOLUME 89 fL (80-100); MONOCYTES # (AUTO) 0.1 K/uL (0.1-1.0); MONOCYTES % (AUTO) 1.7 % (2.0-9.0); NEUTROPHILS # (AUTO) 6.7 K/uL (1.8-7.7); NEUTROPHILS % (AUTO) 90.4 % (40.0-70.0); PLATELET COUNT (AUTO) 445 K/uL (150-450); RED BLOOD CELL COUNT(AUTO) 4.04 MIL/uL (4.00-5.20)
[2019-09-11 07:32] LABS: ALBUMIN 2.7 g/dL (3.4-5.0); BILIRUBIN,TOTAL 0.2 mg/dL (0.1-1.0); CALCIUM, TOTAL 11.2 mg/dL (8.8-10.5); CREATININE 1.99 mg/dL (0.60-1.30); POTASSIUM 5.2 mmol/L (3.5-5.1); TOTAL PROTEIN, SERUM 7.4 g/dL (6.4-8.2)
[2019-09-11 07:35] VITALS: BP 130/70
[2019-09-11] MEDS: OMEPRAZOLE 20 MG CAPSULE PO SCH ×2 (08:35→20:46)
[2019-09-11] MEDS: ATORVASTATIN CALCIUM 20 MG TABLET PO SCH (08:35)
[2019-09-11] MEDS: HEPARIN SODIUM,PORCINE 5,000 UNITS/ML VIAL SQ SCH ×3 (08:35→23:18)
[2019-09-11] MEDS: AmLODIPine BESYLATE 10 MG TABLET PO SCH (08:36)
[2019-09-11] MEDS: HYDROCHLOROTHIAZIDE 25 MG TABLET PO SCH (08:36)
[2019-09-11] MEDS: FLUTICASONE PROPIONATE 50 MCG/SPRAY 16 GM NASAL SPRAY NASAL SCH (08:37)
[2019-09-11] MEDS: DOCUSATE SODIUM 100 MG CAPSULE PO SCH ×2 (08:42→20:47)
[2019-09-11] MEDS ORDERED: MISC MED-CONVERTED FROM AMBULATORY (Losartan/Hydrochlorothiazide (Losartan-Hctz 100-12.5 M PO SCH (09:00)
[2019-09-11] MEDS: LOSARTAN POTASSIUM 50 MG TABLET PO SCH (09:00)
[2019-09-11] MEDS ORDERED: PANTOPRAZOLE SODIUM 40 MG DR TABLET PO SCH (09:00)
[2019-09-11] MEDS: ONDANSETRON HCL 4 MG/2 ML VIAL IVP PRN ×2 (09:42→15:52)
[2019-09-11 12:15] VITALS: BP 114/58
[2019-09-11] MEDS ORDERED: SODIUM CHLORIDE 0.9% 250 ML IV ONE (13:11)
[2019-09-11] MEDS: CefTRIAXone 1 GM/DEXTROSE 50 ML IV SCH (13:28)
[2019-09-11] MEDS: AZITHROMYCIN 500 MG/NS 250 ML IV SCH (14:31)
[2019-09-11 15:31] LABS: APPEARANCE,URINE CLEAR (CLEAR); BILIRUBIN,URINE NEGATIVE (NEGATIVE); GLUCOSE, URINE (UA) 250 mg/dL (NEGATIVE); KETONES,URINE NEGATIVE (NEGATIVE); LEUKOCYTE ESTERASE ,URINE NEGATIVE (NEGATIVE); NITRATE,URINE NEGATIVE (NEGATIVE); OCCULT BLOOD,URINE NEGATIVE (NEGATIVE); PH,URINE 5.5 (5.0-8.0); PROTEIN,URINE NEGATIVE (NEGATIVE); UROBILINOGEN,URINE 0.2 mg/dL (<=1.0)
[2019-09-11 15:34] LABS: RBC,URINE None Seen /HPF (0-2); WBC,URINE None Seen /HPF (0-5)
[2019-09-11 15:35] LABS: BACTERIA,URINE None Seen /HPF (None Seen); SQUAMOUS EPITHELIAL CELL,UR Moderate /LPF (None Seen)
[2019-09-11 16:22] VITALS: BP 108/58
[2019-09-11] MEDS ORDERED: DEXTROSE 50%-WATER 25 GM/50 ML SYRINGE IVP PRN (18:00)
[2019-09-11] MEDS ORDERED: ACET-2247 PO (18:02)
[2019-09-11] MEDS ORDERED: LOSA50TA64 PO (18:02)
[2019-09-11] MEDS ORDERED: ALBU8HFA IH (18:02)
[2019-09-11] MEDS: INSULIN LISPRO 100 UNITS/ML SQ PRN ×2 (19:06→21:11)
[2019-09-11 20:12] VITALS: BP 113/51
[2019-09-11 22:21] LABS: GLUCOMETER DEV NAME(LOC) 5N.1; GLUCOSE,POINT OF CARE 241 MG/DL (70-110)
[2019-09-11 22:22] LABS: GLUCOMETER DEV NAME(LOC) 5N.1; GLUCOSE,POINT OF CARE 247 MG/DL (70-110)
[2019-09-11] MEDS: ZOLPIDEM TARTRATE 5 MG TABLET PO PRN (23:51)
[2019-09-12] VITALS (7 sets, daily range): BP systolic 109–144; BP diastolic 52–67
[2019-09-12] MEDS: ALBUTEROL SULFATE 2.5 MG/0.5 ML NEB SOLUTION NEB SCH ×6 (02:59→22:53)
[2019-09-12] MEDS: IPRATROPIUM BROMIDE 0.5 MG/2.5 ML NEB SOLUTION NEB SCH ×6 (02:59→22:53)
[2019-09-12] MEDS: MethylPREDNISolone SOD SUCC 125 MG/2 ML VIAL IVP SCH ×4 (05:00→23:24)
[2019-09-12] MEDS: INSULIN LISPRO 100 UNITS/ML SQ PRN ×4 (06:07→20:18)
[2019-09-12 06:54] LABS: BASOPHILS % (AUTO) 0.2 % (0.0-2.0); EOSINOPHILS % (AUTO) 0 % (1.0-6.0); HEMOGLOBIN 11.3 g/dL (12.0-16.0); LYMPHOCYTES # (AUTO) 0.8 K/uL (1.0-4.8); LYMPHOCYTES % (AUTO) 5.1 % (22.0-44.0); MEAN CORPUSCULAR HEMOGLOBIN 30.2 pg (26.0-34.0); MEAN CORPUSCULAR HGB CONC 34.2 G/dL (31.0-37.0); MEAN CORPUSCULAR VOLUME 88 fL (80-100); MONOCYTES # (AUTO) 0.4 K/uL (0.1-1.0); MONOCYTES % (AUTO) 2.2 % (2.0-9.0); NEUTROPHILS # (AUTO) 14.6 K/uL (1.8-7.7); PLATELET COUNT (AUTO) 410 K/uL (150-450); RED BLOOD CELL COUNT(AUTO) 3.74 MIL/uL (4.00-5.20); RED CELL DISTRIBUTION WIDTH 14.8 % (11.5-14.5)
[2019-09-12 06:58] LABS: GLUCOMETER DEV NAME(LOC) 5N.1; GLUCOSE,POINT OF CARE 244 MG/DL (70-110)
[2019-09-12 07:02] LABS: NEUTROPHILS % (AUTO) 92.5 % (40.0-70.0)
[2019-09-12 07:13] LABS: ALBUMIN 2.8 g/dL (3.4-5.0); BILIRUBIN,TOTAL 0.3 mg/dL (0.1-1.0); CREATININE 1.89 mg/dL (0.60-1.30); POTASSIUM 4.4 mmol/L (3.5-5.1)
[2019-09-12] MEDS: FLUTICASONE PROPIONATE 50 MCG/SPRAY 16 GM NASAL SPRAY NASAL SCH (08:37)
[2019-09-12] MEDS: DOCUSATE SODIUM 100 MG CAPSULE PO SCH ×2 (08:38→20:13)
[2019-09-12] MEDS: HYDROCHLOROTHIAZIDE 25 MG TABLET PO SCH (08:38)
[2019-09-12] MEDS: ATORVASTATIN CALCIUM 20 MG TABLET PO SCH (08:39)
[2019-09-12] MEDS: OMEPRAZOLE 20 MG CAPSULE PO SCH ×2 (08:39→20:12)
[2019-09-12] MEDS: LOSARTAN POTASSIUM 50 MG TABLET PO SCH (08:39)
[2019-09-12] MEDS: AmLODIPine BESYLATE 10 MG TABLET PO SCH (08:39)
[2019-09-12] MEDS: HEPARIN SODIUM,PORCINE 5,000 UNITS/ML VIAL SQ SCH ×3 (08:41→23:25)
[2019-09-12 12:34] LABS: GLUCOMETER DEV NAME(LOC) 5N.1; GLUCOSE,POINT OF CARE 214 MG/DL (70-110)
[2019-09-12] MEDS: CefTRIAXone 1 GM/DEXTROSE 50 ML IV SCH (12:40)
[2019-09-12] MEDS: AZITHROMYCIN 500 MG/NS 250 ML IV SCH (14:41)
[2019-09-12] MEDS: ONDANSETRON HCL 4 MG/2 ML VIAL IVP PRN (15:31)
[2019-09-12] MEDS ORDERED: GuaiFENesin/D-METHORPHAN/PHENYLEPH 5 ML LIQUID ORAL.SYG PO PRN (19:00)
[2019-09-12 19:59] LABS: GLUCOMETER DEV NAME(LOC) 5N.2; GLUCOSE,POINT OF CARE 234 MG/DL (70-110)
[2019-09-12] MEDS: OxyCODONE HCL/ACETAMINOPHEN 5-325 MG TABLET PO PRN (20:12)
[2019-09-12] MEDS: BENZONATATE 100 MG CAPSULE PO SCH (23:25)
[2019-09-13] VITALS (7 sets, daily range): BP systolic 111–170; BP diastolic 53–81
[2019-09-13 01:59] LABS: GLUCOMETER DEV NAME(LOC) 5N.2; GLUCOSE,POINT OF CARE 286 MG/DL (70-110)
[2019-09-13] MEDS: IPRATROPIUM BROMIDE 0.5 MG/2.5 ML NEB SOLUTION NEB SCH ×6 (02:41→22:57)
[2019-09-13] MEDS: ALBUTEROL SULFATE 2.5 MG/0.5 ML NEB SOLUTION NEB SCH ×6 (02:41→22:57)
[2019-09-13] MEDS: OxyCODONE HCL/ACETAMINOPHEN 5-325 MG TABLET PO PRN ×3 (02:49→15:05)
[2019-09-13] MEDS: MethylPREDNISolone SOD SUCC 125 MG/2 ML VIAL IVP SCH ×4 (06:03→23:36)
[2019-09-13] MEDS: INSULIN LISPRO 100 UNITS/ML SQ PRN ×4 (06:05→20:52)
[2019-09-13 06:57] LABS: GLUCOMETER DEV NAME(LOC) 5N.1; GLUCOSE,POINT OF CARE 242 MG/DL (70-110)
[2019-09-13 07:02] LABS: BASOPHILS % (AUTO) 0.1 % (0.0-2.0); EOSINOPHILS % (AUTO) 0 % (1.0-6.0); HEMATOCRIT 33.1 % (36-46); HEMOGLOBIN 11.2 g/dL (12.0-16.0); LYMPHOCYTES # (AUTO) 0.6 K/uL (1.0-4.8); LYMPHOCYTES % (AUTO) 3.6 % (22.0-44.0); MEAN CORPUSCULAR HEMOGLOBIN 30.1 pg (26.0-34.0); MEAN CORPUSCULAR HGB CONC 33.8 G/dL (31.0-37.0); MEAN CORPUSCULAR VOLUME 89 fL (80-100); MONOCYTES # (AUTO) 0.5 K/uL (0.1-1.0); MONOCYTES % (AUTO) 2.6 % (2.0-9.0); NEUTROPHILS # (AUTO) 16.5 K/uL (1.8-7.7); PLATELET COUNT (AUTO) 437 K/uL (150-450); RED BLOOD CELL COUNT(AUTO) 3.72 MIL/uL (4.00-5.20)
[2019-09-13 07:17] LABS: NEUTROPHILS % (AUTO) 93.7 % (40.0-70.0)
[2019-09-13 07:20] LABS: ALBUMIN 2.8 g/dL (3.4-5.0); BILIRUBIN,TOTAL 0.2 mg/dL (0.1-1.0); CREATININE 1.71 mg/dL (0.60-1.30); POTASSIUM 4.1 mmol/L (3.5-5.1); TOTAL PROTEIN, SERUM 6.8 g/dL (6.4-8.2)
[2019-09-13] MEDS: LOSARTAN POTASSIUM 50 MG TABLET PO SCH (08:45)
[2019-09-13] MEDS: BENZONATATE 100 MG CAPSULE PO SCH ×3 (08:45→23:37)
[2019-09-13] MEDS: OMEPRAZOLE 20 MG CAPSULE PO SCH ×2 (08:45→20:53)
[2019-09-13] MEDS: DOCUSATE SODIUM 100 MG CAPSULE PO SCH ×2 (08:45→20:53)
[2019-09-13] MEDS: HYDROCHLOROTHIAZIDE 25 MG TABLET PO SCH (08:47)
[2019-09-13] MEDS: ATORVASTATIN CALCIUM 20 MG TABLET PO SCH (08:47)
[2019-09-13] MEDS: FLUTICASONE PROPIONATE 50 MCG/SPRAY 16 GM NASAL SPRAY NASAL SCH (08:49)
[2019-09-13] MEDS: HEPARIN SODIUM,PORCINE 5,000 UNITS/ML VIAL SQ SCH ×3 (08:50→23:37)
[2019-09-13] MEDS: AmLODIPine BESYLATE 10 MG TABLET PO SCH (09:37)
[2019-09-13] MEDS: CefTRIAXone 1 GM/DEXTROSE 50 ML IV SCH (12:01)
[2019-09-13 12:31] LABS: GLUCOMETER DEV NAME(LOC) 5N.1; GLUCOSE,POINT OF CARE 246 MG/DL (70-110)
[2019-09-13] MEDS: AZITHROMYCIN 500 MG/NS 250 ML IV SCH (14:52)
[2019-09-13 16:52] LABS: GLUCOMETER DEV NAME(LOC) 5N.1; GLUCOSE,POINT OF CARE 262 MG/DL (70-110)
[2019-09-13] MEDS: ONDANSETRON HCL 4 MG/2 ML VIAL IVP PRN (18:59)
[2019-09-13] MEDS: ZOLPIDEM TARTRATE 5 MG TABLET PO PRN (20:53)
[2019-09-13 23:09] LABS: GLUCOMETER DEV NAME(LOC) 5N.1; GLUCOSE,POINT OF CARE 208 MG/DL (70-110)
[2019-09-14] MEDS: IPRATROPIUM BROMIDE 0.5 MG/2.5 ML NEB SOLUTION NEB SCH ×4 (03:23→15:00)
[2019-09-14] MEDS: ALBUTEROL SULFATE 2.5 MG/0.5 ML NEB SOLUTION NEB SCH ×4 (03:23→15:00)
[2019-09-14 03:35] VITALS: BP 128/67
[2019-09-14] MEDS: ONDANSETRON HCL 4 MG/2 ML VIAL IVP PRN (03:52)
[2019-09-14 06:57] LABS: BASOPHILS % (AUTO) 0.1 % (0.0-2.0); EOSINOPHILS % (AUTO) 0 % (1.0-6.0); HEMATOCRIT 35.9 % (36-46); HEMOGLOBIN 11.9 g/dL (12.0-16.0); LYMPHOCYTES # (AUTO) 0.7 K/uL (1.0-4.8); LYMPHOCYTES % (AUTO) 4.5 % (22.0-44.0); MEAN CORPUSCULAR HGB CONC 33.2 G/dL (31.0-37.0); MEAN CORPUSCULAR VOLUME 87 fL (80-100); MONOCYTES # (AUTO) 0.5 K/uL (0.1-1.0); MONOCYTES % (AUTO) 3.4 % (2.0-9.0); PLATELET COUNT (AUTO) 427 K/uL (150-450); RED BLOOD CELL COUNT(AUTO) 4.11 MIL/uL (4.00-5.20); RED CELL DISTRIBUTION WIDTH 14.8 % (11.5-14.5)
[2019-09-14] MEDS: MethylPREDNISolone SOD SUCC 125 MG/2 ML VIAL IVP SCH ×2 (07:02→12:28)
[2019-09-14] MEDS: INSULIN LISPRO 100 UNITS/ML SQ PRN ×2 (07:03→12:21)
[2019-09-14 07:15] VITALS: BP 129/75
[2019-09-14 07:25] LABS: ALBUMIN 2.7 g/dL (3.4-5.0); BILIRUBIN,TOTAL 0.2 mg/dL (0.1-1.0); CREATININE 1.4 mg/dL (0.60-1.30); TOTAL PROTEIN, SERUM 6.7 g/dL (6.4-8.2)
[2019-09-14] MEDS: HEPARIN SODIUM,PORCINE 5,000 UNITS/ML VIAL SQ SCH (08:51)
[2019-09-14] MEDS: HYDROCHLOROTHIAZIDE 25 MG TABLET PO SCH (08:52)
[2019-09-14] MEDS: DOCUSATE SODIUM 100 MG CAPSULE PO SCH (08:52)
[2019-09-14] MEDS: BENZONATATE 100 MG CAPSULE PO SCH (08:52)
[2019-09-14] MEDS: OMEPRAZOLE 20 MG CAPSULE PO SCH (08:52)
[2019-09-14] MEDS: AmLODIPine BESYLATE 10 MG TABLET PO SCH (08:52)
[2019-09-14] MEDS: ATORVASTATIN CALCIUM 20 MG TABLET PO SCH (08:52)
[2019-09-14] MEDS: LOSARTAN POTASSIUM 50 MG TABLET PO SCH (08:52)
[2019-09-14] MEDS: FLUTICASONE PROPIONATE 50 MCG/SPRAY 16 GM NASAL SPRAY NASAL SCH (08:53)
[2019-09-14] MEDS: OxyCODONE HCL/ACETAMINOPHEN 5-325 MG TABLET PO PRN (09:36)
[2019-09-14 11:20] VITALS: BP 116/63
[2019-09-14] MEDS ORDERED: GUAIFCF5L PO (13:12)
[2019-09-14] MEDS ORDERED: AMOX1TAB16 PO (13:12)
[2019-09-14] MEDS ORDERED: OXYC-38 PO (13:12)
[2019-09-14] MEDS ORDERED: BENZ100C68 PO (13:12)
[2019-09-14] MEDS: CefTRIAXone 1 GM/DEXTROSE 50 ML IV SCH (13:15)
[2019-09-15 00:53] LABS: GLUCOMETER DEV NAME(LOC) 5N.1; GLUCOSE,POINT OF CARE 294 MG/DL (70-110)
[2019-09-15 00:53] LABS: GLUCOMETER DEV NAME(LOC) 5N.1; GLUCOSE,POINT OF CARE 228 MG/DL (70-110)
== END 2019-09-14 14:35 | disposition home or self-care (01) | DRG 194 ==
LOC: EMS 12:55 → 5N 18:12
PROVIDERS: ADMIT Hospitalist; ATTEND Hospitalist
DX: J18.9 Pneumonia, unspecified organism (principal); J44.0 Chronic obstructive pulmonary disease with (acute) lower respiratory infection; E87.1 Hypo-osmolality and hyponatremia; N17.9 Acute kidney failure, unspecified; J91.8 Pleural effusion in other conditions classified elsewhere; I10 Essential (primary) hypertension; E78.5 Hyperlipidemia, unspecified; R73.9 Hyperglycemia, unspecified; T38.0X5A Adverse effect of glucocorticoids and synthetic analogues, initial encounter; F03.90 Unspecified dementia, unspecified severity, without behavioral disturbance, psychotic disturbance, mood disturbance, and anxiety; Z82.49 Family history of ischemic heart disease and other diseases of the circulatory system; Z82.5 Family history of asthma and other chronic lower respiratory diseases; Z83.3 Family history of diabetes mellitus; Z23 Encounter for immunization; Z79.899 Other long term (current) drug therapy
CPT/HCPCS: 83036; 84443; 90686; 93005; 94640; 96365; 97116; 97162; 97530; J0456; J0696; J1644; J2405; J2930; J7050

== ENCOUNTER 2019-10-01 09:11 | Inpatient (IN) | payer MEDICARE, OTHER ==
[~2019-10-01] VITALS: Ht 162.6 cm; Wt 65.1 kg
[~2019-10-01 09:11] MED LIST changes: +ACET-2247 PO; -ACET-66 PO; +ALBU8HFA IH; -ALBU90AE PUFF; +AMLO10TA7 PO; +AMOX1TAB16 PO; -ATEN50TA PO; +ATOR20TA86 PO; +BENZ100C68 PO; -DEXT15CA17 PO; +FLUT16H NASAL; +FORM20VI NEB; +GUAIFCF5L PO; +HYDR25TA PO; -LOSA1TAB42 PO; +LOSA50TA64 PO; +OXYC-38 PO
[2019-10-01] MEDS ORDERED: ONDANSETRON HCL 4 MG/2 ML VIAL IVP ONE (10:15)
[2019-10-01] MEDS ORDERED: MORPHINE SULFATE 4 MG/ML SYRINGE IVP ONE (10:15)
[2019-10-01] MEDS ORDERED: ALBUTEROL SULFATE 2.5 MG/0.5 ML NEB SOLUTION NEB ONE (11:00)
[2019-10-01] MEDS ORDERED: AZITHROMYCIN 500 MG/NS 250 ML IV ONE (11:00)
[2019-10-01] MEDS ORDERED: CefTRIAXone 1 GM/DEXTROSE 50 ML IV ONE (11:00)
[2019-10-01] MEDS ORDERED: IPRATROPIUM BROMIDE 0.5 MG/2.5 ML NEB SOLUTION NEB ONE (11:00)
[2019-10-01 11:18] LABS: BASOPHILS % (AUTO) 1.4 % (0.0-2.0); EOSINOPHILS % (AUTO) 2.6 % (1.0-6.0); HEMATOCRIT 38.1 % (36-46); HEMOGLOBIN 12.9 g/dL (12.0-16.0); LYMPHOCYTES # (AUTO) 1.2 K/uL (1.0-4.8); LYMPHOCYTES % (AUTO) 16.5 % (22.0-44.0); MEAN CORPUSCULAR HEMOGLOBIN 28.8 pg (26.0-34.0); MEAN CORPUSCULAR HGB CONC 33.8 G/dL (31.0-37.0); MEAN CORPUSCULAR VOLUME 85 fL (80-100); MONOCYTES # (AUTO) 0.5 K/uL (0.1-1.0); MONOCYTES % (AUTO) 7.1 % (2.0-9.0); NEUTROPHILS # (AUTO) 5.2 K/uL (1.8-7.7); NEUTROPHILS % (AUTO) 72.4 % (40.0-70.0); PLATELET COUNT (AUTO) 311 K/uL (150-450); RED BLOOD CELL COUNT(AUTO) 4.46 MIL/uL (4.00-5.20); RED CELL DISTRIBUTION WIDTH 15.9 % (11.5-14.5)
[2019-10-01 11:26] LABS: INFLUENZA TYPE A NEGATIVE FOR TYPE A (NEGATIVE)
[2019-10-01 11:27] LABS: INFLUENZA TYPE B NEGATIVE FOR TYPE B (NEGATIVE)
[2019-10-01 11:35] LABS: ALBUMIN 3.3 g/dL (3.4-5.0); BILIRUBIN,TOTAL 0.7 mg/dL (0.1-1.0); CALCIUM, TOTAL 9.5 mg/dL (8.8-10.5); CREATININE 1.27 mg/dL (0.60-1.30); TOTAL PROTEIN, SERUM 6.8 g/dL (6.4-8.2)
[2019-10-01 11:39] LABS: POTASSIUM 2.7 mmol/L (3.5-5.1)
[2019-10-01] MEDS: POTASSIUM CHL 10 MEQ/WATER 50 ML IV SCH ×2 (12:11→13:17)
[2019-10-01] MEDS ORDERED: POTASSIUM CHLORIDE 20 MEQ ER TABLET PO ONE (12:15)
[2019-10-01] MEDS ORDERED: SODIUM CHLORIDE 0.9% 250 ML IV ONE (12:33)
[2019-10-01 12:43] LABS: MAGNESIUM 1.3 mg/dL (1.80-2.40)
[2019-10-01] MEDS ORDERED: IPRATROPIUM BROMIDE 0.5 MG/2.5 ML NEB SOLUTION NEB PRN (13:15)
[2019-10-01] MEDS ORDERED: POTASSIUM CHLORIDE 20 MEQ ER TABLET PO PRN (13:15)
[2019-10-01] MEDS ORDERED: POTASSIUM CHL 10 MEQ/WATER 50 ML IV PRN (13:15)
[2019-10-01] MEDS ORDERED: MAGNESIUM OXIDE 400 MG TABLET PO PRN (13:15)
[2019-10-01] MEDS ORDERED: MAGNESIUM SULFATE 2 GM/WATER 50 ML IV PRN (13:15)
[2019-10-01] MEDS ORDERED: MAGNESIUM HYDROXIDE SUSPENSION 30 ML UDCUP PO PRN (13:15)
[2019-10-01] MEDS ORDERED: ALBUTEROL SULFATE 2.5 MG/0.5 ML NEB SOLUTION NEB PRN (13:15)
[2019-10-01] MEDS ORDERED: MAGNESIUM SULFATE 4 GM/WATER 100 ML IV PRN (13:15)
[2019-10-01] MEDS ORDERED: ONDANSETRON HCL 4 MG/2 ML VIAL IVP PRN (13:45)
[2019-10-01] MEDS: PredniSONE 20 MG TABLET PO SCH (14:13)
[2019-10-01] MEDS: ACETAMINOPHEN 325 MG TABLET PO PRN (14:16)
[2019-10-01] MEDS: HEPARIN SODIUM,PORCINE 5,000 UNITS/ML VIAL SQ SCH ×2 (15:14→23:17)
[2019-10-01] MEDS ORDERED: SODIUM CHLORIDE 0.9% 1,000 ML ONE (15:49)
[2019-10-01] MEDS: DOCUSATE SODIUM 100 MG CAPSULE PO SCH (20:19)
[2019-10-01] MEDS ORDERED: TEMAZEPAM 15 MG CAPSULE PO ONE (22:00)
[2019-10-02 05:49] LABS: MAGNESIUM 1.1 mg/dL (1.80-2.40)
[2019-10-02 08:12] LABS: CALCIUM, TOTAL 8.8 mg/dL (8.8-10.5); CREATININE 1.19 mg/dL (0.60-1.30); POTASSIUM 3.9 mmol/L (3.5-5.1)
[2019-10-02 08:26] VITALS: BP 129/73
[2019-10-02] MEDS: FAMOTIDINE 20 MG TABLET PO SCH (08:52)
[2019-10-02] MEDS: PredniSONE 20 MG TABLET PO SCH (08:52)
[2019-10-02] MEDS: HEPARIN SODIUM,PORCINE 5,000 UNITS/ML VIAL SQ SCH ×3 (08:53→23:31)
[2019-10-02] MEDS: ATORVASTATIN CALCIUM 20 MG TABLET PO SCH (08:53)
[2019-10-02] MEDS: DOCUSATE SODIUM 100 MG CAPSULE PO SCH ×2 (08:54→21:00)
[2019-10-02] MEDS: ASPIRIN 81 MG CHEWABLE TABLET PO SCH (08:54)
[2019-10-02] MEDS ORDERED: SODIUM CHLORIDE 0.9% 250 ML IV ONE (08:55)
[2019-10-02] MEDS: ACETAMINOPHEN 325 MG TABLET PO PRN ×2 (09:15→16:44)
[2019-10-02 11:40] VITALS: BP 123/68
[2019-10-02] MEDS: AZITHROMYCIN 500 MG/NS 250 ML IV SCH (12:12)
[2019-10-02 16:10] VITALS: BP 124/60
[2019-10-02] MEDS ORDERED: PNEUMOCOCCAL VACCINE POLYVALENT 0.5 ML VIAL [PPSV23] IM ONE (17:15)
[2019-10-02 19:55] VITALS: BP 139/71
[2019-10-02] MEDS: TEMAZEPAM 15 MG CAPSULE PO PRN (21:12)
[2019-10-02 23:55] VITALS: BP 121/52
[2019-10-03] MEDS: ACETAMINOPHEN 325 MG TABLET PO PRN (01:47)
[2019-10-03 04:36] VITALS: BP 148/78
[2019-10-03 07:30] LABS: CALCIUM, TOTAL 9.7 mg/dL (8.8-10.5); CREATININE 1.06 mg/dL (0.60-1.30); MAGNESIUM 2.1 mg/dL (1.80-2.40); POTASSIUM 3.7 mmol/L (3.5-5.1)
[2019-10-03 07:41] VITALS: BP 148/76
[2019-10-03] MEDS: DOCUSATE SODIUM 100 MG CAPSULE PO SCH ×2 (08:24→21:06)
[2019-10-03] MEDS: PredniSONE 20 MG TABLET PO SCH (08:24)
[2019-10-03] MEDS: ATORVASTATIN CALCIUM 20 MG TABLET PO SCH (08:24)
[2019-10-03] MEDS: FAMOTIDINE 20 MG TABLET PO SCH (08:24)
[2019-10-03] MEDS: HEPARIN SODIUM,PORCINE 5,000 UNITS/ML VIAL SQ SCH ×3 (08:25→21:07)
[2019-10-03] MEDS: ASPIRIN 81 MG CHEWABLE TABLET PO SCH (08:25)
[2019-10-03] MEDS: AZITHROMYCIN 500 MG/NS 250 ML IV SCH (11:08)
[2019-10-03 11:54] VITALS: BP 149/80
[2019-10-03] MEDS: AZITHROMYCIN 250 MG TABLET PO SCH (13:57)
[2019-10-03] MEDS: BENZONATATE 100 MG CAPSULE PO PRN (13:57)
[2019-10-03 20:32] VITALS: BP 134/91
[2019-10-03] MEDS: TEMAZEPAM 15 MG CAPSULE PO PRN (21:06)
[2019-10-04 00:29] VITALS: BP 131/82
[2019-10-04 04:00] VITALS: BP 151/82
[2019-10-04 07:25] VITALS: BP 140/84
[2019-10-04] MEDS: DOCUSATE SODIUM 100 MG CAPSULE PO SCH (08:44)
[2019-10-04] MEDS: ASPIRIN 81 MG CHEWABLE TABLET PO SCH (08:44)
[2019-10-04] MEDS: ATORVASTATIN CALCIUM 20 MG TABLET PO SCH (08:44)
[2019-10-04] MEDS: AZITHROMYCIN 250 MG TABLET PO SCH (08:44)
[2019-10-04] MEDS: HEPARIN SODIUM,PORCINE 5,000 UNITS/ML VIAL SQ SCH (08:44)
[2019-10-04] MEDS: PredniSONE 20 MG TABLET PO SCH (08:44)
[2019-10-04] MEDS: FAMOTIDINE 20 MG TABLET PO SCH (08:45)
[2019-10-04] MEDS: BENZONATATE 100 MG CAPSULE PO PRN (10:09)
[2019-10-04 11:20] VITALS: BP 146/86
[2019-10-04 12:31] LABS: APPEARANCE,URINE CLEAR (CLEAR); BILIRUBIN,URINE NEGATIVE (NEGATIVE); GLUCOSE, URINE (UA) NEGATIVE (NEGATIVE); KETONES,URINE NEGATIVE (NEGATIVE); LEUKOCYTE ESTERASE ,URINE NEGATIVE (NEGATIVE); NITRATE,URINE NEGATIVE (NEGATIVE); OCCULT BLOOD,URINE NEGATIVE (NEGATIVE); PROTEIN,URINE NEGATIVE (NEGATIVE); UROBILINOGEN,URINE 0.2 mg/dL (<=1.0)
[2019-10-04 15:45] VITALS: BP 140/85
== END 2019-10-04 17:00 | disposition home or self-care (01) | DRG 191 ==
LOC: EMS 09:15 → 5N 10-02 05:00 → 6N 10-02 19:30
PROVIDERS: ADMIT Internal Medicine; ATTEND Internal Medicine
PROC: 3E0234Z Introduction of Serum, Toxoid and Vaccine into Muscle, Percutaneous Approach (ICD-10-PCS; principal; 2019-10-04)
DX: J44.1 Chronic obstructive pulmonary disease with (acute) exacerbation (principal); J96.11 Chronic respiratory failure with hypoxia; J20.9 Acute bronchitis, unspecified; J44.0 Chronic obstructive pulmonary disease with (acute) lower respiratory infection; Z23 Encounter for immunization; E87.6 Hypokalemia; F03.90 Unspecified dementia, unspecified severity, without behavioral disturbance, psychotic disturbance, mood disturbance, and anxiety; G25.81 Restless legs syndrome; I10 Essential (primary) hypertension; Z82.49 Family history of ischemic heart disease and other diseases of the circulatory system; Z82.5 Family history of asthma and other chronic lower respiratory diseases; Z83.3 Family history of diabetes mellitus; Z87.891 Personal history of nicotine dependence; Z99.81 Dependence on supplemental oxygen
CPT/HCPCS: 83735; 87040; 87081; 87804; 90732; 93005; 94060; 94640; J0456; J0696; J1644; J2270; J2405; J3475; J3480; J7030; J7050

== ENCOUNTER 2019-11-05 08:21 | Inpatient (IN) | payer MEDICARE, OTHER ==
[~2019-11-05] VITALS: Ht 152.4 cm; Wt 75.4 kg
[~2019-11-05 08:21] MED LIST changes: -AMOX1TAB16 PO; -FLUT16H NASAL; -FURO20 PO; -GUAIFCF5L PO; -HYDR25TA PO; -LOSA50TA64 PO; -OXYC-38 PO
[2019-11-05] MEDS ORDERED: IPRATROPIUM BROMIDE 0.5 MG/2.5 ML NEB SOLUTION NEB ONE (09:00)
[2019-11-05] MEDS ORDERED: ALBUTEROL SULFATE 2.5 MG/0.5 ML NEB SOLUTION NEB ONE (09:00)
[2019-11-05 09:37] LABS: BASOPHILS % (AUTO) 0.3 % (0.0-2.0); EOSINOPHILS % (AUTO) 5.2 % (1.0-6.0); HEMATOCRIT 43.4 % (36-46); HEMOGLOBIN 14.6 g/dL (12.0-16.0); LYMPHOCYTES # (AUTO) 1.2 K/uL (1.0-4.8); LYMPHOCYTES % (AUTO) 12.3 % (22.0-44.0); MEAN CORPUSCULAR HEMOGLOBIN 29.6 pg (26.0-34.0); MEAN CORPUSCULAR HGB CONC 33.6 G/dL (31.0-37.0); MEAN CORPUSCULAR VOLUME 88 fL (80-100); MONOCYTES # (AUTO) 0.6 K/uL (0.1-1.0); MONOCYTES % (AUTO) 6.1 % (2.0-9.0); NEUTROPHILS # (AUTO) 7.3 K/uL (1.8-7.7); NEUTROPHILS % (AUTO) 76.1 % (40.0-70.0); PLATELET COUNT (AUTO) 352 K/uL (150-450); RED BLOOD CELL COUNT(AUTO) 4.93 MIL/uL (4.00-5.20); RED CELL DISTRIBUTION WIDTH 15.6 % (11.5-14.5)
[2019-11-05 09:49] LABS: CALCIUM, TOTAL 10.2 mg/dL (8.8-10.5); CREATININE 1.12 mg/dL (0.60-1.30); POTASSIUM 3.4 mmol/L (3.5-5.1)
[2019-11-05 09:52] LABS: BILIRUBIN,TOTAL 0.8 mg/dL (0.1-1.0); TOTAL PROTEIN, SERUM 7.7 g/dL (6.4-8.2)
[2019-11-05 10:07] LABS: INFLUENZA TYPE A NEGATIVE FOR TYPE A (NEGATIVE); INFLUENZA TYPE B NEGATIVE FOR TYPE B (NEGATIVE)
[2019-11-05] MEDS ORDERED: CefTRIAXone 1 GM/DEXTROSE 50 ML IV ONE (10:45)
[2019-11-05] MEDS ORDERED: AZITHROMYCIN 500 MG/NS 250 ML IV ONE (10:45)
[2019-11-05] MEDS ORDERED: BENZONATATE 100 MG CAPSULE PO ONE (11:15)
[2019-11-05] MEDS ORDERED: ACETAMINOPHEN 325 MG TABLET PO PRN (14:15)
[2019-11-05] MEDS ORDERED: 0.9% SODIUM CHLORIDE 10 ML SYRINGE IVP PRN (14:15)
[2019-11-05] MEDS: ALBUTEROL SULFATE 2.5 MG/0.5 ML NEB SOLUTION NEB SCH ×3 (15:14→22:04)
[2019-11-05] MEDS: IPRATROPIUM BROMIDE 0.5 MG/2.5 ML NEB SOLUTION NEB SCH ×3 (15:14→22:04)
[2019-11-05 15:17] LABS: INR 1.1 (0.9-1.1); PROTHROMBIN TIME 10.7 SEC (9.4-11.6)
[2019-11-05] MEDS: MORPHINE SULFATE 2 MG/ML SYRINGE IVP PRN (16:13)
[2019-11-05] MEDS ORDERED: MAGNESIUM HYDROXIDE SUSPENSION 30 ML UDCUP PO PRN (21:30)
[2019-11-05] MEDS ORDERED: IPRATROPIUM BROMIDE 0.5 MG/2.5 ML NEB SOLUTION NEB PRN (21:30)
[2019-11-05] MEDS ORDERED: ALBUTEROL SULFATE 2.5 MG/0.5 ML NEB SOLUTION NEB PRN (21:30)
[2019-11-05] MEDS ORDERED: BISACODYL 10 MG RECTAL RECTAL SUPPOSITORY PR PRN (21:30)
[2019-11-05] MEDS ORDERED: POTASSIUM CHLORIDE 20 MEQ ER TABLET PO ONE (21:45)
[2019-11-05 22:03] VITALS: BP 136/65
[2019-11-05] MEDS: MethylPREDNISolone SOD SUCC 125 MG/2 ML VIAL IVP SCH (23:42)
[2019-11-05] MEDS: HEPARIN SODIUM,PORCINE 5,000 UNITS/ML VIAL SQ SCH (23:43)
[2019-11-05] MEDS: BENZONATATE 100 MG CAPSULE PO SCH (23:45)
[2019-11-05] MEDS: ZOLPIDEM TARTRATE 5 MG TABLET PO PRN (23:45)
[2019-11-05 23:51] VITALS: BP 114/61
[2019-11-06] MEDS: ALBUTEROL SULFATE 2.5 MG/0.5 ML NEB SOLUTION NEB SCH ×6 (02:10→23:41)
[2019-11-06] MEDS: IPRATROPIUM BROMIDE 0.5 MG/2.5 ML NEB SOLUTION NEB SCH ×6 (02:11→23:41)
[2019-11-06 05:02] VITALS: BP 112/64
[2019-11-06] MEDS: MethylPREDNISolone SOD SUCC 125 MG/2 ML VIAL IVP SCH ×4 (06:33→23:09)
[2019-11-06 07:18] VITALS: BP 146/80
[2019-11-06 07:19] LABS: BASOPHILS % (AUTO) 0.1 % (0.0-2.0); EOSINOPHILS % (AUTO) 0.1 % (1.0-6.0); HEMATOCRIT 37.3 % (36-46); HEMOGLOBIN 12.7 g/dL (12.0-16.0); LYMPHOCYTES # (AUTO) 0.4 K/uL (1.0-4.8); LYMPHOCYTES % (AUTO) 7.7 % (22.0-44.0); MEAN CORPUSCULAR HEMOGLOBIN 29.6 pg (26.0-34.0); MEAN CORPUSCULAR VOLUME 87 fL (80-100); MONOCYTES # (AUTO) 0.1 K/uL (0.1-1.0); MONOCYTES % (AUTO) 1.8 % (2.0-9.0); NEUTROPHILS # (AUTO) 4.4 K/uL (1.8-7.7); PLATELET COUNT (AUTO) 294 K/uL (150-450); RED BLOOD CELL COUNT(AUTO) 4.29 MIL/uL (4.00-5.20); RED CELL DISTRIBUTION WIDTH 15.5 % (11.5-14.5)
[2019-11-06 07:35] LABS: NEUTROPHILS % (AUTO) 90.3 % (40.0-70.0)
[2019-11-06 07:39] LABS: ALBUMIN 3.2 g/dL (3.4-5.0); BILIRUBIN,TOTAL 0.5 mg/dL (0.1-1.0); CALCIUM, TOTAL 9.4 mg/dL (8.8-10.5); CREATININE 1.85 mg/dL (0.60-1.30); POTASSIUM 3.7 mmol/L (3.5-5.1); TOTAL PROTEIN, SERUM 6.7 g/dL (6.4-8.2)
[2019-11-06] MEDS: BENZONATATE 100 MG CAPSULE PO SCH ×3 (08:55→23:10)
[2019-11-06] MEDS: AmLODIPine BESYLATE 10 MG TABLET PO SCH (08:55)
[2019-11-06] MEDS: ATORVASTATIN CALCIUM 20 MG TABLET PO SCH (08:55)
[2019-11-06] MEDS: DOCUSATE SODIUM 100 MG CAPSULE PO SCH ×2 (08:55→21:00)
[2019-11-06] MEDS: OMEPRAZOLE 20 MG CAPSULE PO SCH (08:55)
[2019-11-06] MEDS: HEPARIN SODIUM,PORCINE 5,000 UNITS/ML VIAL SQ SCH ×3 (08:56→23:09)
[2019-11-06] MEDS ORDERED: PANTOPRAZOLE SODIUM 40 MG DR TABLET PO SCH (09:00)
[2019-11-06] MEDS ORDERED: SODIUM CHLORIDE 0.9% 250 ML IV ONE (09:07)
[2019-11-06] MEDS: CefTRIAXone 1 GM/DEXTROSE 50 ML IV SCH (09:22)
[2019-11-06] MEDS: MORPHINE SULFATE 2 MG/ML SYRINGE IVP PRN (11:10)
[2019-11-06 11:15] VITALS: BP 120/72
[2019-11-06] MEDS: AZITHROMYCIN 500 MG/NS 250 ML IV SCH (11:35)
[2019-11-06] MEDS: ONDANSETRON HCL 4 MG/2 ML VIAL IVP PRN (12:59)
[2019-11-06 15:27] VITALS: BP 145/65
[2019-11-06 19:18] VITALS: BP 110/64
[2019-11-06] MEDS: ZOLPIDEM TARTRATE 5 MG TABLET PO PRN (23:10)
[2019-11-06 23:13] VITALS: BP 136/70
[2019-11-07] MEDS: ALBUTEROL SULFATE 2.5 MG/0.5 ML NEB SOLUTION NEB SCH ×6 (03:00→23:37)
[2019-11-07] MEDS: IPRATROPIUM BROMIDE 0.5 MG/2.5 ML NEB SOLUTION NEB SCH ×6 (03:00→23:37)
[2019-11-07 04:17] VITALS: BP 115/60
[2019-11-07] MEDS: MethylPREDNISolone SOD SUCC 125 MG/2 ML VIAL IVP SCH ×5 (06:00→23:15)
[2019-11-07] MEDS: OxyCODONE HCL/ACETAMINOPHEN 5-325 MG TABLET PO PRN (06:59)
[2019-11-07 08:50] VITALS: BP 127/61
[2019-11-07] MEDS: AmLODIPine BESYLATE 10 MG TABLET PO SCH (08:53)
[2019-11-07] MEDS: OMEPRAZOLE 20 MG CAPSULE PO SCH (08:53)
[2019-11-07] MEDS: HEPARIN SODIUM,PORCINE 5,000 UNITS/ML VIAL SQ SCH ×3 (08:53→23:15)
[2019-11-07] MEDS: ATORVASTATIN CALCIUM 20 MG TABLET PO SCH (08:53)
[2019-11-07] MEDS: DOCUSATE SODIUM 100 MG CAPSULE PO SCH ×2 (08:53→21:00)
[2019-11-07] MEDS: BENZONATATE 100 MG CAPSULE PO SCH ×3 (08:53→23:14)
[2019-11-07] MEDS: ONDANSETRON HCL 4 MG/2 ML VIAL IVP PRN (10:20)
[2019-11-07] MEDS: CefTRIAXone 1 GM/DEXTROSE 50 ML IV SCH (10:21)
[2019-11-07] MEDS: AZITHROMYCIN 500 MG/NS 250 ML IV SCH (11:07)
[2019-11-07 12:29] VITALS: BP 110/54
[2019-11-07] MEDS: MORPHINE SULFATE 2 MG/ML SYRINGE IVP PRN (14:45)
[2019-11-07 16:40] VITALS: BP 126/62
[2019-11-07 21:01] VITALS: BP 131/71
[2019-11-08 00:12] VITALS: BP 119/71
[2019-11-08] MEDS: ACETAMINOPHEN 325 MG TABLET PO PRN (02:34)
[2019-11-08] MEDS: IPRATROPIUM BROMIDE 0.5 MG/2.5 ML NEB SOLUTION NEB SCH ×6 (03:31→23:00)
[2019-11-08] MEDS: ALBUTEROL SULFATE 2.5 MG/0.5 ML NEB SOLUTION NEB SCH ×6 (03:31→23:00)
[2019-11-08 04:25] VITALS: BP 108/67
[2019-11-08] MEDS: MethylPREDNISolone SOD SUCC 125 MG/2 ML VIAL IVP SCH ×3 (05:21→17:58)
[2019-11-08 08:15] VITALS: BP 143/77
[2019-11-08] MEDS: TraMADol HCL 50 MG TABLET PO PRN (08:44)
[2019-11-08] MEDS: BENZONATATE 100 MG CAPSULE PO SCH ×2 (08:44→15:06)
[2019-11-08] MEDS: AmLODIPine BESYLATE 10 MG TABLET PO SCH (08:45)
[2019-11-08] MEDS: OMEPRAZOLE 20 MG CAPSULE PO SCH (08:45)
[2019-11-08] MEDS: ATORVASTATIN CALCIUM 20 MG TABLET PO SCH (08:45)
[2019-11-08] MEDS: HEPARIN SODIUM,PORCINE 5,000 UNITS/ML VIAL SQ SCH ×2 (08:46→15:07)
[2019-11-08] MEDS: DOCUSATE SODIUM 100 MG CAPSULE PO SCH ×2 (08:46→21:00)
[2019-11-08] MEDS: CefTRIAXone 1 GM/DEXTROSE 50 ML IV SCH (09:32)
[2019-11-08] MEDS: AZITHROMYCIN 500 MG/NS 250 ML IV SCH (10:59)
[2019-11-08] MEDS: ONDANSETRON HCL 4 MG/2 ML VIAL IVP PRN (11:00)
[2019-11-08 11:14] VITALS: BP 122/61
[2019-11-08 15:33] LABS: ABG A-A DIFF O2 244.9 mmHg (10-20.0); ABG BASE EXCESS -6.7 mmol/L (-2.0-3.0); ABG CARBOXYHEMOGLOBIN 0.6 % (0.0-1.5); ABG HCO3 19.1 mmol/L (22.0-26.0); ABG METHEMOGLOBIN 0.2 % (0.0-1.5); ABG OXYGEN CONTENT 16.8 mL/dL (15.0-23.0); ABG OXYGEN SATURATION 90.1 % (95.0-98.0); ABG OXYHEMOGLOBIN 89.4 % (94.0-100.0); ABG PCO2 43 mmHg (35-45); ABG PH 7.282 (7.35-7.450); ABG TOTAL HEMOGLOBIN 13.4 G/dL (12.0-18.0); O2 DEVICE,BLOOD GAS VENTI MASK (ROOM AIR); PO2, ARTERIAL BG 62.9 mmHg (71.0-79.0); SITE, BLOOD GAS LFT BRACHIAL; SOURCE, BLOOD GAS ARTERIAL; TEMPERATURE, FAHRENHEIT, BG 98.6 FAHREN (96.0-98.6)
[2019-11-08 15:39] VITALS: BP 150/75
[2019-11-08] MEDS: MORPHINE SULFATE 2 MG/ML SYRINGE IVP PRN ×2 (16:42→20:54)
[2019-11-08] MEDS: ACETYLCYSTEINE 10% 100 MG/ML 4 ML NEB SOLUTION NEB SCH (17:00)
[2019-11-08 20:09] VITALS: BP 135/81
[2019-11-08] MEDS: GuaiFENesin SR 600 MG ER TABLET PO SCH (21:00)
[2019-11-08] MEDS ORDERED: MORPHINE SULFATE 4 MG/ML SYRINGE IVP ONE (22:00)
[2019-11-08] MEDS ORDERED: MORPHINE SULFATE 4 MG/ML SYRINGE ONE (22:13)
[2019-11-08] MEDS ORDERED: LIDOCAINE 1%/EPI 1:200,000/PF 10 ML VIAL ONE (23:10)
[2019-11-08] MEDS ORDERED: MORPHINE SULFATE 15 MG ER TABLET PO ONE (23:15)
[2019-11-09] VITALS (16 sets, daily range): BP systolic 111–145; BP diastolic 59–97
[2019-11-09] MEDS: MethylPREDNISolone SOD SUCC 125 MG/2 ML VIAL IVP SCH ×5 (01:01→23:42)
[2019-11-09] MEDS: HEPARIN SODIUM,PORCINE 5,000 UNITS/ML VIAL SQ SCH ×5 (01:01→23:43)
[2019-11-09] MEDS: BENZONATATE 100 MG CAPSULE PO SCH ×5 (01:02→23:43)
[2019-11-09] MEDS ORDERED: LIDOCAINE 1%/EPI 1:200,000/PF 10 ML VIAL ONE (01:10)
[2019-11-09] MEDS ORDERED: MORPHINE SULFATE 2 MG/ML SYRINGE IVP ONE ×2 (01:30→13:30)
[2019-11-09] MEDS ORDERED: HYDROmorphone 2 MG/ML SYRINGE IVP ONE (01:30)
[2019-11-09] MEDS ORDERED: LORazepam 2 MG/ML VIAL ONE (01:34)
[2019-11-09] MEDS ORDERED: LORazepam 2 MG/ML VIAL IVP ONE (02:00)
[2019-11-09] MEDS: ALBUTEROL SULFATE 2.5 MG/0.5 ML NEB SOLUTION NEB SCH ×6 (02:42→22:46)
[2019-11-09] MEDS: IPRATROPIUM BROMIDE 0.5 MG/2.5 ML NEB SOLUTION NEB SCH ×6 (02:43→22:46)
[2019-11-09 04:27] LABS: BASOPHILS % (AUTO) 0.2 % (0.0-2.0); EOSINOPHILS % (AUTO) 0 % (1.0-6.0); HEMATOCRIT 37.3 % (36-46); HEMOGLOBIN 12.3 g/dL (12.0-16.0); LYMPHOCYTES # (AUTO) 0.5 K/uL (1.0-4.8); LYMPHOCYTES % (AUTO) 2.6 % (22.0-44.0); MEAN CORPUSCULAR HEMOGLOBIN 28.6 pg (26.0-34.0); MEAN CORPUSCULAR HGB CONC 32.9 G/dL (31.0-37.0); MEAN CORPUSCULAR VOLUME 87 fL (80-100); MONOCYTES # (AUTO) 1.1 K/uL (0.1-1.0); MONOCYTES % (AUTO) 5.7 % (2.0-9.0); NEUTROPHILS # (AUTO) 17.3 K/uL (1.8-7.7); PLATELET COUNT (AUTO) 389 K/uL (150-450); RED BLOOD CELL COUNT(AUTO) 4.29 MIL/uL (4.00-5.20); RED CELL DISTRIBUTION WIDTH 15.6 % (11.5-14.5)
[2019-11-09 04:28] LABS: NEUTROPHILS % (AUTO) 91.5 % (40.0-70.0)
[2019-11-09 04:35] LABS: CALCIUM, TOTAL 9.6 mg/dL (8.8-10.5); CREATININE 1.52 mg/dL (0.60-1.30); POTASSIUM 4.3 mmol/L (3.5-5.1)
[2019-11-09] MEDS: MORPHINE SULFATE 2 MG/ML SYRINGE IVP PRN ×5 (05:54→19:51)
[2019-11-09] MEDS: ACETYLCYSTEINE 10% 100 MG/ML 4 ML NEB SOLUTION NEB SCH ×5 (05:56→20:08)
[2019-11-09] MEDS: DOCUSATE SODIUM 100 MG CAPSULE PO SCH ×2 (09:00→21:20)
[2019-11-09] MEDS: AmLODIPine BESYLATE 10 MG TABLET PO SCH (09:00)
[2019-11-09] MEDS: OMEPRAZOLE 20 MG CAPSULE PO SCH (09:00)
[2019-11-09] MEDS: GuaiFENesin SR 600 MG ER TABLET PO SCH ×3 (09:00→21:00)
[2019-11-09] MEDS: ATORVASTATIN CALCIUM 20 MG TABLET PO SCH (09:00)
[2019-11-09] MEDS ORDERED: FLUMAZENIL 0.1 MG/ML 5 ML VIAL IVP ONE (09:34)
[2019-11-09] MEDS ORDERED: NALOXONE HCL 0.4 MG/ML VIAL ONE (09:34)
[2019-11-09] MEDS ORDERED: FentaNYL CITRATE-PF 100 MCG/2 ML VIAL ONE (09:34)
[2019-11-09] MEDS ORDERED: MIDAZOLAM HCL 2 MG/2 ML VIAL ONE (09:34)
[2019-11-09] MEDS: CefTRIAXone 1 GM/DEXTROSE 50 ML IV SCH (10:48)
[2019-11-09] MEDS ORDERED: SODIUM CHLORIDE 0.9% 250 ML IV ONE (11:16)
[2019-11-09] MEDS: AZITHROMYCIN 500 MG/NS 250 ML IV SCH (12:14)
[2019-11-09] MEDS: ONDANSETRON HCL 4 MG/2 ML VIAL IVP PRN (12:15)
[2019-11-10] VITALS (17 sets, daily range): BP systolic 110–166; BP diastolic 41–91
[2019-11-10] MEDS: MORPHINE SULFATE 2 MG/ML SYRINGE IVP PRN ×6 (00:53→20:12)
[2019-11-10] MEDS: ALBUTEROL SULFATE 2.5 MG/0.5 ML NEB SOLUTION NEB SCH ×6 (02:59→23:29)
[2019-11-10] MEDS: IPRATROPIUM BROMIDE 0.5 MG/2.5 ML NEB SOLUTION NEB SCH ×6 (02:59→23:29)
[2019-11-10] MEDS: MethylPREDNISolone SOD SUCC 125 MG/2 ML VIAL IVP SCH ×4 (05:38→23:19)
[2019-11-10] MEDS: HEPARIN SODIUM,PORCINE 5,000 UNITS/ML VIAL SQ SCH ×3 (08:00→23:19)
[2019-11-10] MEDS: ACETYLCYSTEINE 10% 100 MG/ML 4 ML NEB SOLUTION NEB SCH ×3 (08:00→23:29)
[2019-11-10 08:36] LABS: CALCIUM, TOTAL 10.1 mg/dL (8.8-10.5); CREATININE 1.16 mg/dL (0.60-1.30); POTASSIUM 4.2 mmol/L (3.5-5.1)
[2019-11-10 08:42] LABS: BASOPHILS % (AUTO) 0.1 % (0.0-2.0); EOSINOPHILS % (AUTO) 0 % (1.0-6.0); HEMATOCRIT 39.9 % (36-46); HEMOGLOBIN 13.2 g/dL (12.0-16.0); LYMPHOCYTES # (AUTO) 0.3 K/uL (1.0-4.8); LYMPHOCYTES % (AUTO) 2.1 % (22.0-44.0); MEAN CORPUSCULAR HEMOGLOBIN 28.7 pg (26.0-34.0); MEAN CORPUSCULAR VOLUME 87 fL (80-100); MONOCYTES # (AUTO) 0.9 K/uL (0.1-1.0); MONOCYTES % (AUTO) 5.3 % (2.0-9.0); PLATELET COUNT (AUTO) 346 K/uL (150-450); RED BLOOD CELL COUNT(AUTO) 4.59 MIL/uL (4.00-5.20); RED CELL DISTRIBUTION WIDTH 14.9 % (11.5-14.5)
[2019-11-10 09:07] LABS: NEUTROPHILS % (AUTO) 92.5 % (40.0-70.0)
[2019-11-10] MEDS: ONDANSETRON HCL 4 MG/2 ML VIAL IVP PRN ×2 (09:26→21:19)
[2019-11-10] MEDS: CefTRIAXone 1 GM/DEXTROSE 50 ML IV SCH (09:57)
[2019-11-10] MEDS ORDERED: LIDOCAINE/PF 1% 5 ML VIAL ONE (10:57)
[2019-11-10] MEDS: AZITHROMYCIN 500 MG/NS 250 ML IV SCH (11:37)
[2019-11-10] MEDS: BENZONATATE 100 MG CAPSULE PO SCH ×3 (11:48→23:18)
[2019-11-10] MEDS: OMEPRAZOLE 20 MG CAPSULE PO SCH (11:50)
[2019-11-10] MEDS: AmLODIPine BESYLATE 10 MG TABLET PO SCH (11:52)
[2019-11-10] MEDS: DOCUSATE SODIUM 100 MG CAPSULE PO SCH ×2 (11:52→20:12)
[2019-11-10] MEDS: ATORVASTATIN CALCIUM 20 MG TABLET PO SCH (11:56)
[2019-11-10] MEDS: OxyCODONE HCL/ACETAMINOPHEN 5-325 MG TABLET PO PRN (13:39)
[2019-11-10] MEDS ORDERED: SODIUM CHLORIDE 0.9% 100 ML ONE (15:57)
[2019-11-10] MEDS: GuaiFENesin SR 600 MG ER TABLET PO SCH (20:12)
[2019-11-10] MEDS: TraMADol HCL 50 MG TABLET PO PRN (22:05)
[2019-11-11] VITALS (10 sets, daily range): BP systolic 127–172; BP diastolic 76–101
[2019-11-11] MEDS: MORPHINE SULFATE 2 MG/ML SYRINGE IVP PRN ×3 (00:18→08:35)
[2019-11-11] MEDS: IPRATROPIUM BROMIDE 0.5 MG/2.5 ML NEB SOLUTION NEB SCH ×6 (03:00→23:35)
[2019-11-11] MEDS: ALBUTEROL SULFATE 2.5 MG/0.5 ML NEB SOLUTION NEB SCH ×6 (03:00→23:36)
[2019-11-11 04:50] LABS: BASOPHILS % (AUTO) 0.2 % (0.0-2.0); EOSINOPHILS % (AUTO) 0.3 % (1.0-6.0); HEMATOCRIT 37.2 % (36-46); HEMOGLOBIN 12.5 g/dL (12.0-16.0); LYMPHOCYTES # (AUTO) 0.6 K/uL (1.0-4.8); LYMPHOCYTES % (AUTO) 4.3 % (22.0-44.0); MEAN CORPUSCULAR HEMOGLOBIN 29.2 pg (26.0-34.0); MEAN CORPUSCULAR HGB CONC 33.6 G/dL (31.0-37.0); MEAN CORPUSCULAR VOLUME 87 fL (80-100); MONOCYTES # (AUTO) 0.7 K/uL (0.1-1.0); MONOCYTES % (AUTO) 4.6 % (2.0-9.0); NEUTROPHILS # (AUTO) 12.8 K/uL (1.8-7.7); PLATELET COUNT (AUTO) 299 K/uL (150-450); RED BLOOD CELL COUNT(AUTO) 4.28 MIL/uL (4.00-5.20); RED CELL DISTRIBUTION WIDTH 15.3 % (11.5-14.5)
[2019-11-11 05:01] LABS: CALCIUM, TOTAL 9.8 mg/dL (8.8-10.5); CREATININE 1.13 mg/dL (0.60-1.30); POTASSIUM 4.3 mmol/L (3.5-5.1)
[2019-11-11] MEDS: MethylPREDNISolone SOD SUCC 125 MG/2 ML VIAL IVP SCH ×3 (05:13→17:57)
[2019-11-11 05:25] LABS: NEUTROPHILS % (AUTO) 90.6 % (40.0-70.0)
[2019-11-11] MEDS: ACETYLCYSTEINE 10% 100 MG/ML 4 ML NEB SOLUTION NEB SCH ×4 (07:47→19:54)
[2019-11-11] MEDS: OMEPRAZOLE 20 MG CAPSULE PO SCH (08:33)
[2019-11-11] MEDS: HEPARIN SODIUM,PORCINE 5,000 UNITS/ML VIAL SQ SCH ×2 (08:33→15:55)
[2019-11-11] MEDS: GuaiFENesin SR 600 MG ER TABLET PO SCH ×2 (08:34→20:23)
[2019-11-11] MEDS: BENZONATATE 100 MG CAPSULE PO SCH ×2 (08:34→15:55)
[2019-11-11] MEDS: DOCUSATE SODIUM 100 MG CAPSULE PO SCH ×2 (08:34→20:23)
[2019-11-11] MEDS: ATORVASTATIN CALCIUM 20 MG TABLET PO SCH (08:34)
[2019-11-11] MEDS: AmLODIPine BESYLATE 10 MG TABLET PO SCH (08:34)
[2019-11-11] MEDS: CefTRIAXone 1 GM/DEXTROSE 50 ML IV SCH (09:42)
[2019-11-11] MEDS ORDERED: SODIUM CHLORIDE 0.9% 250 ML IV ONE (09:57)
[2019-11-11] MEDS: AZITHROMYCIN 500 MG/NS 250 ML IV SCH (10:58)
[2019-11-11] MEDS ORDERED: 0.9% SODIUM CHLORIDE 5 ML NEB SOLUTION NEB ONE (12:06)
[2019-11-11] MEDS: ONDANSETRON HCL 4 MG/2 ML VIAL IVP PRN (15:56)
[2019-11-11] MEDS: OxyCODONE HCL/ACETAMINOPHEN 5-325 MG TABLET PO PRN (22:58)
[2019-11-12] VITALS (10 sets, daily range): BP systolic 126–156; BP diastolic 66–99
[2019-11-12] MEDS: HEPARIN SODIUM,PORCINE 5,000 UNITS/ML VIAL SQ SCH ×3 (00:07→16:11)
[2019-11-12] MEDS: BENZONATATE 100 MG CAPSULE PO SCH ×3 (00:07→16:11)
[2019-11-12] MEDS: MethylPREDNISolone SOD SUCC 125 MG/2 ML VIAL IVP SCH ×4 (00:07→17:35)
[2019-11-12] MEDS: ALBUTEROL SULFATE 2.5 MG/0.5 ML NEB SOLUTION NEB SCH ×6 (03:00→23:13)
[2019-11-12] MEDS: IPRATROPIUM BROMIDE 0.5 MG/2.5 ML NEB SOLUTION NEB SCH ×6 (03:00→23:13)
[2019-11-12] MEDS: MORPHINE SULFATE 2 MG/ML SYRINGE IVP PRN ×4 (05:41→22:51)
[2019-11-12] MEDS: ACETYLCYSTEINE 10% 100 MG/ML 4 ML NEB SOLUTION NEB SCH ×4 (07:26→23:12)
[2019-11-12 08:50] LABS: BASOPHILS % (AUTO) 0.1 % (0.0-2.0); EOSINOPHILS % (AUTO) 0.4 % (1.0-6.0); HEMATOCRIT 36.2 % (36-46); HEMOGLOBIN 12.4 g/dL (12.0-16.0); LYMPHOCYTES # (AUTO) 0.4 K/uL (1.0-4.8); LYMPHOCYTES % (AUTO) 3.3 % (22.0-44.0); MEAN CORPUSCULAR HEMOGLOBIN 29.6 pg (26.0-34.0); MEAN CORPUSCULAR HGB CONC 34.3 G/dL (31.0-37.0); MEAN CORPUSCULAR VOLUME 86 fL (80-100); MONOCYTES # (AUTO) 0.5 K/uL (0.1-1.0); NEUTROPHILS # (AUTO) 11.6 K/uL (1.8-7.7); NEUTROPHILS % (AUTO) 92.2 % (40.0-70.0); PLATELET COUNT (AUTO) 265 K/uL (150-450); RED BLOOD CELL COUNT(AUTO) 4.19 MIL/uL (4.00-5.20); RED CELL DISTRIBUTION WIDTH 15.3 % (11.5-14.5)
[2019-11-12] MEDS: GuaiFENesin SR 600 MG ER TABLET PO SCH ×2 (08:50→20:19)
[2019-11-12] MEDS: DOCUSATE SODIUM 100 MG CAPSULE PO SCH ×2 (08:50→20:19)
[2019-11-12] MEDS: AmLODIPine BESYLATE 10 MG TABLET PO SCH (08:50)
[2019-11-12] MEDS: ATORVASTATIN CALCIUM 20 MG TABLET PO SCH (08:50)
[2019-11-12] MEDS: OMEPRAZOLE 20 MG CAPSULE PO SCH (08:50)
[2019-11-12] MEDS: TraMADol HCL 50 MG TABLET PO PRN (08:50)
[2019-11-12 09:08] LABS: ALANINE AMINOTRANSFERASE 23 U/L (12-78); ALBUMIN 2.8 g/dL (3.4-5.0); ALKALINE PHOSPHATASE 54 U/L (46-116); ANION GAP 5 mmol/L (8-16); ASPARTATE AMINOTRANSFERASE 13 U/L (15-37); BILIRUBIN,TOTAL 0.5 mg/dL (0.1-1.0); CALCIUM, TOTAL 9.3 mg/dL (8.8-10.5); CARBON DIOXIDE 31 mmol/L (22-29); CHLORIDE 102 mmol/L (98-107); CREATININE 0.86 mg/dL (0.60-1.30); GLUCOSE,RANDOM 251 mg/dL (70-110); POTASSIUM 3.6 mmol/L (3.5-5.1); SODIUM SERUM 138 mmol/L (136-145); TOTAL PROTEIN, SERUM 5.9 g/dL (6.4-8.2); UREA NITROGEN, BLOOD 25 mg/dL (7-18)
[2019-11-12 09:10] LABS: GLOMERULAR FILTR. RATE CALC > 60 mL/min (>60)
[2019-11-12] MEDS ORDERED: SODIUM CHLORIDE 0.9% 250 ML IV ONE (09:54)
[2019-11-12] MEDS: CefTRIAXone 1 GM/DEXTROSE 50 ML IV SCH (09:56)
[2019-11-12] MEDS: AZITHROMYCIN 500 MG/NS 250 ML IV SCH (11:01)
[2019-11-12] MEDS: ONDANSETRON HCL 4 MG/2 ML VIAL IVP PRN ×2 (11:58→16:11)
[2019-11-13] MEDS: HEPARIN SODIUM,PORCINE 5,000 UNITS/ML VIAL SQ SCH ×4 (00:02→23:30)
[2019-11-13] MEDS: BENZONATATE 100 MG CAPSULE PO SCH ×4 (00:02→23:30)
[2019-11-13] MEDS: MethylPREDNISolone SOD SUCC 125 MG/2 ML VIAL IVP SCH ×5 (00:03→23:30)
[2019-11-13 00:11] VITALS: BP 155/80
[2019-11-13 02:04] LABS: APPEARANCE,URINE CLOUDY (CLEAR); BILIRUBIN,URINE NEGATIVE (NEGATIVE); GLUCOSE, URINE (UA) >=1000 mg/dL (NEGATIVE); KETONES,URINE NEGATIVE (NEGATIVE); LEUKOCYTE ESTERASE ,URINE TRACE (NEGATIVE); NITRATE,URINE NEGATIVE (NEGATIVE); OCCULT BLOOD,URINE LARGE (NEGATIVE); PH,URINE 6.5 (5.0-8.0); PROTEIN,URINE NEGATIVE (NEGATIVE); UROBILINOGEN,URINE 0.2 mg/dL (<=1.0)
[2019-11-13 02:06] LABS: BACTERIA,URINE None Seen /HPF (None Seen); YEAST,URINE Many /HPF (None Seen)
[2019-11-13 02:07] LABS: SQUAMOUS EPITHELIAL CELL,UR Rare /LPF (None Seen)
[2019-11-13] MEDS: ALBUTEROL SULFATE 2.5 MG/0.5 ML NEB SOLUTION NEB SCH ×6 (03:00→23:11)
[2019-11-13] MEDS: IPRATROPIUM BROMIDE 0.5 MG/2.5 ML NEB SOLUTION NEB SCH ×6 (03:00→23:11)
[2019-11-13] MEDS: MORPHINE SULFATE 2 MG/ML SYRINGE IVP PRN ×6 (03:12→23:36)
[2019-11-13 04:46] VITALS: BP 149/80
[2019-11-13 07:18] VITALS: BP 140/80
[2019-11-13] MEDS: ACETYLCYSTEINE 10% 100 MG/ML 4 ML NEB SOLUTION NEB SCH ×4 (08:12→19:52)
[2019-11-13] MEDS: GuaiFENesin SR 600 MG ER TABLET PO SCH ×2 (08:52→20:25)
[2019-11-13] MEDS: ATORVASTATIN CALCIUM 20 MG TABLET PO SCH (08:52)
[2019-11-13] MEDS: AmLODIPine BESYLATE 10 MG TABLET PO SCH (08:52)
[2019-11-13] MEDS: DOCUSATE SODIUM 100 MG CAPSULE PO SCH ×2 (08:52→19:37)
[2019-11-13] MEDS: OMEPRAZOLE 20 MG CAPSULE PO SCH (08:52)
[2019-11-13] MEDS ORDERED: SODIUM CHLORIDE 0.9% 250 ML IV ONE (09:02)
[2019-11-13] MEDS: CefTRIAXone 1 GM/DEXTROSE 50 ML IV SCH (09:07)
[2019-11-13] MEDS: AZITHROMYCIN 500 MG/NS 250 ML IV SCH (10:04)
[2019-11-13 12:00] LABS: BASOPHILS % (AUTO) 0.2 % (0.0-2.0); EOSINOPHILS % (AUTO) 0.1 % (1.0-6.0); HEMATOCRIT 39.4 % (36-46); HEMOGLOBIN 13.2 g/dL (12.0-16.0); LYMPHOCYTES # (AUTO) 0.4 K/uL (1.0-4.8); LYMPHOCYTES % (AUTO) 2.2 % (22.0-44.0); MEAN CORPUSCULAR HEMOGLOBIN 29.3 pg (26.0-34.0); MEAN CORPUSCULAR HGB CONC 33.5 G/dL (31.0-37.0); MEAN CORPUSCULAR VOLUME 88 fL (80-100); MONOCYTES # (AUTO) 0.9 K/uL (0.1-1.0); MONOCYTES % (AUTO) 4.6 % (2.0-9.0); NEUTROPHILS # (AUTO) 17.5 K/uL (1.8-7.7); PLATELET COUNT (AUTO) 273 K/uL (150-450); RED CELL DISTRIBUTION WIDTH 15.3 % (11.5-14.5)
[2019-11-13 12:01] LABS: NEUTROPHILS % (AUTO) 92.9 % (40.0-70.0)
[2019-11-13 12:22] VITALS: BP 133/71
[2019-11-13 12:28] LABS: ALBUMIN 2.5 g/dL (3.4-5.0); BILIRUBIN,TOTAL 0.4 mg/dL (0.1-1.0); CALCIUM, TOTAL 9.1 mg/dL (8.8-10.5); CREATININE 0.93 mg/dL (0.60-1.30); POTASSIUM 3.6 mmol/L (3.5-5.1); TOTAL PROTEIN, SERUM 5.7 g/dL (6.4-8.2)
[2019-11-13 15:56] VITALS: BP 135/75
[2019-11-13 21:03] VITALS: BP 128/74
[2019-11-14 00:26] VITALS: BP 142/73
[2019-11-14] MEDS: MORPHINE SULFATE 2 MG/ML SYRINGE IVP PRN ×5 (03:11→21:33)
[2019-11-14] MEDS: IPRATROPIUM BROMIDE 0.5 MG/2.5 ML NEB SOLUTION NEB SCH ×6 (03:27→23:00)
[2019-11-14] MEDS: ALBUTEROL SULFATE 2.5 MG/0.5 ML NEB SOLUTION NEB SCH ×6 (03:27→23:00)
[2019-11-14 05:38] VITALS: BP 148/67
[2019-11-14] MEDS: MethylPREDNISolone SOD SUCC 125 MG/2 ML VIAL IVP SCH ×2 (05:59→11:29)
[2019-11-14 07:29] VITALS: BP 147/81
[2019-11-14 07:37] LABS: BASOPHILS % (AUTO) 1.1 % (0.0-2.0); EOSINOPHILS % (AUTO) 0 % (1.0-6.0); HEMATOCRIT 37.9 % (36-46); HEMOGLOBIN 12.6 g/dL (12.0-16.0); LYMPHOCYTES # (AUTO) 0.3 K/uL (1.0-4.8); LYMPHOCYTES % (AUTO) 2.2 % (22.0-44.0); MEAN CORPUSCULAR HEMOGLOBIN 28.9 pg (26.0-34.0); MEAN CORPUSCULAR HGB CONC 33.3 G/dL (31.0-37.0); MEAN CORPUSCULAR VOLUME 87 fL (80-100); MONOCYTES # (AUTO) 0.7 K/uL (0.1-1.0); MONOCYTES % (AUTO) 4.4 % (2.0-9.0); NEUTROPHILS # (AUTO) 14.6 K/uL (1.8-7.7); PLATELET COUNT (AUTO) 250 K/uL (150-450); RED BLOOD CELL COUNT(AUTO) 4.38 MIL/uL (4.00-5.20)
[2019-11-14 07:44] LABS: NEUTROPHILS % (AUTO) 92.3 % (40.0-70.0)
[2019-11-14 07:57] LABS: ALBUMIN 2.4 g/dL (3.4-5.0); BILIRUBIN,TOTAL 0.5 mg/dL (0.1-1.0); CALCIUM, TOTAL 9.1 mg/dL (8.8-10.5); CREATININE 0.91 mg/dL (0.60-1.30); POTASSIUM 3.7 mmol/L (3.5-5.1); TOTAL PROTEIN, SERUM 5.6 g/dL (6.4-8.2)
[2019-11-14] MEDS: ACETYLCYSTEINE 10% 100 MG/ML 4 ML NEB SOLUTION NEB SCH ×4 (08:26→21:03)
[2019-11-14] MEDS: GuaiFENesin SR 600 MG ER TABLET PO SCH ×2 (08:44→19:55)
[2019-11-14] MEDS: AmLODIPine BESYLATE 10 MG TABLET PO SCH (08:44)
[2019-11-14] MEDS: OMEPRAZOLE 20 MG CAPSULE PO SCH (08:44)
[2019-11-14] MEDS: BENZONATATE 100 MG CAPSULE PO SCH ×2 (08:44→15:13)
[2019-11-14] MEDS: ATORVASTATIN CALCIUM 20 MG TABLET PO SCH (08:45)
[2019-11-14] MEDS: DOCUSATE SODIUM 100 MG CAPSULE PO SCH ×2 (08:45→19:55)
[2019-11-14] MEDS: HEPARIN SODIUM,PORCINE 5,000 UNITS/ML VIAL SQ SCH ×2 (08:45→15:13)
[2019-11-14] MEDS: CefTRIAXone 1 GM/DEXTROSE 50 ML IV SCH (09:02)
[2019-11-14] MEDS: AZITHROMYCIN 500 MG/NS 250 ML IV SCH (11:29)
[2019-11-14 12:01] VITALS: BP 141/57
[2019-11-14] MEDS: ONDANSETRON HCL 4 MG/2 ML VIAL IVP PRN (12:14)
[2019-11-14] MEDS: ACETAMINOPHEN 325 MG TABLET PO PRN (12:15)
[2019-11-14 16:49] VITALS: BP 145/58
[2019-11-14] MEDS: MethylPREDNISolone SOD SUCC 40 MG/ML VIAL IVP SCH (17:41)
[2019-11-14 20:04] VITALS: BP 152/69
[2019-11-15 00:01] VITALS: BP 131/66
[2019-11-15] MEDS: BENZONATATE 100 MG CAPSULE PO SCH ×4 (00:58→23:41)
[2019-11-15] MEDS: HEPARIN SODIUM,PORCINE 5,000 UNITS/ML VIAL SQ SCH ×4 (00:58→23:41)
[2019-11-15] MEDS: MethylPREDNISolone SOD SUCC 40 MG/ML VIAL IVP SCH ×5 (00:58→23:41)
[2019-11-15] MEDS: MORPHINE SULFATE 2 MG/ML SYRINGE IVP PRN ×7 (03:04→23:42)
[2019-11-15] MEDS: ALBUTEROL SULFATE 2.5 MG/0.5 ML NEB SOLUTION NEB SCH ×6 (03:27→23:00)
[2019-11-15] MEDS: IPRATROPIUM BROMIDE 0.5 MG/2.5 ML NEB SOLUTION NEB SCH ×6 (03:27→23:00)
[2019-11-15 05:26] VITALS: BP 149/68
[2019-11-15 07:36] VITALS: BP 147/77
[2019-11-15] MEDS: ACETYLCYSTEINE 10% 100 MG/ML 4 ML NEB SOLUTION NEB SCH ×3 (08:34→19:21)
[2019-11-15] MEDS: AmLODIPine BESYLATE 10 MG TABLET PO SCH (08:40)
[2019-11-15] MEDS: GuaiFENesin SR 600 MG ER TABLET PO SCH ×2 (08:41→20:32)
[2019-11-15] MEDS: OMEPRAZOLE 20 MG CAPSULE PO SCH (08:41)
[2019-11-15] MEDS: ATORVASTATIN CALCIUM 20 MG TABLET PO SCH (08:41)
[2019-11-15] MEDS: DOCUSATE SODIUM 100 MG CAPSULE PO SCH ×2 (08:53→20:32)
[2019-11-15] MEDS ORDERED: SODIUM CHLORIDE 0.9% 250 ML IV ONE (09:03)
[2019-11-15] MEDS: CefTRIAXone 1 GM/DEXTROSE 50 ML IV SCH (09:08)
[2019-11-15] MEDS: AZITHROMYCIN 500 MG/NS 250 ML IV SCH (10:37)
[2019-11-15 11:43] VITALS: BP 118/63
[2019-11-15 15:12] VITALS: BP 134/73
[2019-11-15] MEDS: OxyCODONE HCL/ACETAMINOPHEN 5-325 MG TABLET PO PRN (17:33)
[2019-11-15 19:40] VITALS: BP 127/64
[2019-11-16] MEDS: ALBUTEROL SULFATE 2.5 MG/0.5 ML NEB SOLUTION NEB SCH ×6 (03:00→22:54)
[2019-11-16] MEDS: IPRATROPIUM BROMIDE 0.5 MG/2.5 ML NEB SOLUTION NEB SCH ×6 (03:00→22:54)
[2019-11-16] MEDS: MORPHINE SULFATE 2 MG/ML SYRINGE IVP PRN ×7 (04:35→23:27)
[2019-11-16 05:06] VITALS: BP 154/77
[2019-11-16] MEDS: MethylPREDNISolone SOD SUCC 40 MG/ML VIAL IVP SCH ×4 (05:29→23:16)
[2019-11-16 07:02] LABS: ALBUMIN 2.2 g/dL (3.4-5.0); BILIRUBIN,TOTAL 0.5 mg/dL (0.1-1.0); CALCIUM, TOTAL 9.4 mg/dL (8.8-10.5); CREATININE 1.01 mg/dL (0.60-1.30); POTASSIUM 3.6 mmol/L (3.5-5.1); TOTAL PROTEIN, SERUM 5.8 g/dL (6.4-8.2)
[2019-11-16] MEDS: ACETYLCYSTEINE 10% 100 MG/ML 4 ML NEB SOLUTION NEB SCH ×4 (07:08→19:39)
[2019-11-16 07:33] LABS: HEMATOCRIT 38.1 % (36-46); HEMOGLOBIN 12.9 g/dL (12.0-16.0); MEAN CORPUSCULAR HEMOGLOBIN 29.6 pg (26.0-34.0); MEAN CORPUSCULAR VOLUME 87 fL (80-100); PLATELET COUNT (AUTO) 245 K/uL (150-450); RED BLOOD CELL COUNT(AUTO) 4.36 MIL/uL (4.00-5.20); RED CELL DISTRIBUTION WIDTH 14.8 % (11.5-14.5)
[2019-11-16 07:45] VITALS: BP 144/80
[2019-11-16 08:40] LABS: BAND NEUTROPHILS % (MANUAL) 1 % (0-5); LYMPHOCYTES % (MANUAL) 3 % (22-44); MONOCYTES % (MANUAL) 3 % (2-9); SEGMENTED NEUTROPHILS % 93 % (40-70)
[2019-11-16 08:47] LABS: HEMATOCRIT 38.2 % (36-46); MEAN CORPUSCULAR HEMOGLOBIN 29.8 pg (26.0-34.0); MEAN CORPUSCULAR HGB CONC 34.1 G/dL (31.0-37.0); MEAN CORPUSCULAR VOLUME 88 fL (80-100); PLATELET COUNT (AUTO) 175 K/uL (150-450); RED BLOOD CELL COUNT(AUTO) 4.36 MIL/uL (4.00-5.20); RED CELL DISTRIBUTION WIDTH 14.8 % (11.5-14.5)
[2019-11-16] MEDS: OMEPRAZOLE 20 MG CAPSULE PO SCH (08:55)
[2019-11-16] MEDS: HEPARIN SODIUM,PORCINE 5,000 UNITS/ML VIAL SQ SCH ×3 (08:56→23:16)
[2019-11-16] MEDS: AmLODIPine BESYLATE 10 MG TABLET PO SCH (08:56)
[2019-11-16] MEDS: BENZONATATE 100 MG CAPSULE PO SCH ×3 (08:56→23:16)
[2019-11-16] MEDS: DOCUSATE SODIUM 100 MG CAPSULE PO SCH ×2 (08:57→20:19)
[2019-11-16] MEDS: GuaiFENesin SR 600 MG ER TABLET PO SCH ×2 (08:57→20:19)
[2019-11-16] MEDS: OxyCODONE HCL/ACETAMINOPHEN 5-325 MG TABLET PO PRN (08:57)
[2019-11-16] MEDS: ATORVASTATIN CALCIUM 20 MG TABLET PO SCH (08:57)
[2019-11-16 09:37] LABS: BAND NEUTROPHILS % (MANUAL) 3 % (0-5); LYMPHOCYTES % (MANUAL) 4 % (22-44); MONOCYTES % (MANUAL) 2 % (2-9); SEGMENTED NEUTROPHILS % 91 % (40-70)
[2019-11-16] MEDS: AZITHROMYCIN 500 MG/NS 250 ML IV SCH (11:00)
[2019-11-16] MEDS: CefTRIAXone 1 GM/DEXTROSE 50 ML IV SCH (11:15)
[2019-11-16 12:00] VITALS: BP 136/70
[2019-11-16 15:35] VITALS: BP 151/72
[2019-11-16 20:15] VITALS: BP 158/71
[2019-11-17] VITALS (7 sets, daily range): BP systolic 135–161; BP diastolic 61–98
[2019-11-17] MEDS: IPRATROPIUM BROMIDE 0.5 MG/2.5 ML NEB SOLUTION NEB SCH ×6 (02:49→23:00)
[2019-11-17] MEDS: ALBUTEROL SULFATE 2.5 MG/0.5 ML NEB SOLUTION NEB SCH ×6 (02:49→23:00)
[2019-11-17] MEDS: MORPHINE SULFATE 2 MG/ML SYRINGE IVP PRN ×5 (03:14→18:55)
[2019-11-17] MEDS: MethylPREDNISolone SOD SUCC 40 MG/ML VIAL IVP SCH ×3 (05:19→20:12)
[2019-11-17] MEDS: ACETYLCYSTEINE 10% 100 MG/ML 4 ML NEB SOLUTION NEB SCH ×4 (08:30→19:26)
[2019-11-17] MEDS: OMEPRAZOLE 20 MG CAPSULE PO SCH (09:40)
[2019-11-17] MEDS: HEPARIN SODIUM,PORCINE 5,000 UNITS/ML VIAL SQ SCH ×2 (09:40→16:00)
[2019-11-17] MEDS: AmLODIPine BESYLATE 10 MG TABLET PO SCH (09:40)
[2019-11-17] MEDS: DOCUSATE SODIUM 100 MG CAPSULE PO SCH ×2 (09:41→20:13)
[2019-11-17] MEDS: GuaiFENesin SR 600 MG ER TABLET PO SCH ×2 (09:41→20:13)
[2019-11-17] MEDS: ATORVASTATIN CALCIUM 20 MG TABLET PO SCH (09:41)
[2019-11-17] MEDS: BENZONATATE 100 MG CAPSULE PO SCH ×2 (09:42→16:00)
[2019-11-17 10:31] LABS: HEMATOCRIT 41.6 % (36-46); HEMOGLOBIN 13.8 g/dL (12.0-16.0); MEAN CORPUSCULAR HEMOGLOBIN 29.2 pg (26.0-34.0); MEAN CORPUSCULAR HGB CONC 33.1 G/dL (31.0-37.0); MEAN CORPUSCULAR VOLUME 88 fL (80-100); PLATELET COUNT (AUTO) 237 K/uL (150-450); RED BLOOD CELL COUNT(AUTO) 4.72 MIL/uL (4.00-5.20); RED CELL DISTRIBUTION WIDTH 15.4 % (11.5-14.5)
[2019-11-17 10:32] LABS: BILIRUBIN,TOTAL 0.8 mg/dL (0.1-1.0); CALCIUM, TOTAL 10.3 mg/dL (8.8-10.5); CREATININE 1.05 mg/dL (0.60-1.30); POTASSIUM 4.1 mmol/L (3.5-5.1); TOTAL PROTEIN, SERUM 6.7 g/dL (6.4-8.2)
[2019-11-17 11:02] LABS: ALBUMIN 2.4 g/dL (3.4-5.0)
[2019-11-17 12:09] LABS: BAND NEUTROPHILS % (MANUAL) 2 % (0-5); LYMPHOCYTES % (MANUAL) 2 % (22-44); MONOCYTES % (MANUAL) 3 % (2-9); SEGMENTED NEUTROPHILS % 93 % (40-70)
[2019-11-17] MEDS ORDERED: SODIUM CHLORIDE 0.9% 500 ML IV ONE (12:20)
[2019-11-17] MEDS: CefTRIAXone 1 GM/DEXTROSE 50 ML IV SCH (12:42)
[2019-11-17] MEDS: AZITHROMYCIN 500 MG/NS 250 ML IV SCH (15:06)
[2019-11-17] MEDS: TraMADol HCL 50 MG TABLET PO PRN (20:14)
[2019-11-18] MEDS: MORPHINE SULFATE 2 MG/ML SYRINGE IVP PRN ×7 (00:45→23:19)
[2019-11-18] MEDS: BENZONATATE 100 MG CAPSULE PO SCH ×4 (00:45→23:19)
[2019-11-18] MEDS: HEPARIN SODIUM,PORCINE 5,000 UNITS/ML VIAL SQ SCH ×4 (00:45→23:17)
[2019-11-18 00:55] VITALS: BP 154/89
[2019-11-18] MEDS: IPRATROPIUM BROMIDE 0.5 MG/2.5 ML NEB SOLUTION NEB SCH ×5 (02:47→19:55)
[2019-11-18] MEDS: ALBUTEROL SULFATE 2.5 MG/0.5 ML NEB SOLUTION NEB SCH ×5 (02:47→19:55)
[2019-11-18 05:42] VITALS: BP 151/86
[2019-11-18] MEDS: ACETYLCYSTEINE 10% 100 MG/ML 4 ML NEB SOLUTION NEB SCH ×4 (07:02→19:55)
[2019-11-18] MEDS ORDERED: SODIUM CL IRRIG SOLN BOTTLE 250 ML IRRIG ONE (09:03)
[2019-11-18] MEDS: GuaiFENesin SR 600 MG ER TABLET PO SCH ×2 (09:21→20:46)
[2019-11-18] MEDS: OMEPRAZOLE 20 MG CAPSULE PO SCH (09:22)
[2019-11-18] MEDS: ATORVASTATIN CALCIUM 20 MG TABLET PO SCH (09:22)
[2019-11-18] MEDS: DOCUSATE SODIUM 100 MG CAPSULE PO SCH ×2 (09:23→20:45)
[2019-11-18] MEDS: AmLODIPine BESYLATE 10 MG TABLET PO SCH (09:23)
[2019-11-18] MEDS: MethylPREDNISolone SOD SUCC 40 MG/ML VIAL IVP SCH ×2 (09:24→20:47)
[2019-11-18] MEDS ORDERED: SODIUM CHLORIDE 0.9% 250 ML IV ONE (09:29)
[2019-11-18] MEDS: CefTRIAXone 1 GM/DEXTROSE 50 ML IV SCH (09:53)
[2019-11-18 11:13] VITALS: BP 156/91
[2019-11-18] MEDS: AZITHROMYCIN 500 MG/NS 250 ML IV SCH (11:24)
[2019-11-18 14:11] LABS: ABG A-A DIFF O2 594.2 mmHg (10-20.0); ABG BASE EXCESS 5.2 mmol/L (-2.0-3.0); ABG CARBOXYHEMOGLOBIN 0.8 % (0.0-1.5); ABG HCO3 28.9 mmol/L (22.0-26.0); ABG METHEMOGLOBIN 0.1 % (0.0-1.5); ABG OXYGEN CONTENT 17.2 mL/dL (15.0-23.0); ABG OXYHEMOGLOBIN 95.1 % (94.0-100.0); ABG PCO2 39 mmHg (35-45); ABG PH 7.484 (7.35-7.450); ABG TOTAL HEMOGLOBIN 12.8 G/dL (12.0-18.0); PO2, ARTERIAL BG 79.6 mmHg (71.0-79.0); SOURCE, BLOOD GAS ARTERIAL; TEMPERATURE, FAHRENHEIT, BG 98.8 FAHREN (96.0-98.6)
[2019-11-18 14:12] LABS: O2 DEVICE,BLOOD GAS NON REBREATHER (ROOM AIR); SITE, BLOOD GAS RT RADIAL
[2019-11-18] MEDS ORDERED: DIGOXIN 250 MCG/ML 2 ML AMP ONE (15:41)
[2019-11-18] MEDS ORDERED: DIGOXIN 250 MCG/ML 2 ML AMP IVP ONE (15:45)
[2019-11-18] MEDS ORDERED: AMIODARONE HCL 150 MG in DEXTROSE 5%-WATER 97 ML IV ONE (15:55)
[2019-11-18 16:05] VITALS: BP 146/82
[2019-11-18] MEDS ORDERED: AMIODARONE HCL 360 MG in DEXTROSE 5%-WATER 242.8 ML IV ONE (16:10)
[2019-11-18] MEDS ORDERED: DEXTROSE 50%-WATER 25 GM/50 ML SYRINGE IVP PRN (18:00)
[2019-11-18 18:09] LABS: BASOPHILS % (AUTO) 0.6 % (0.0-2.0); EOSINOPHILS % (AUTO) 0 % (1.0-6.0); HEMATOCRIT 38.3 % (36-46); HEMOGLOBIN 12.3 g/dL (12.0-16.0); LYMPHOCYTES # (AUTO) 0.2 K/uL (1.0-4.8); LYMPHOCYTES % (AUTO) 0.5 % (22.0-44.0); MEAN CORPUSCULAR HEMOGLOBIN 28.5 pg (26.0-34.0); MEAN CORPUSCULAR HGB CONC 32.1 G/dL (31.0-37.0); MEAN CORPUSCULAR VOLUME 89 fL (80-100); MONOCYTES # (AUTO) 1.4 K/uL (0.1-1.0); MONOCYTES % (AUTO) 3.5 % (2.0-9.0); NEUTROPHILS # (AUTO) 39.3 K/uL (1.8-7.7); PLATELET COUNT (AUTO) 181 K/uL (150-450); RED CELL DISTRIBUTION WIDTH 15.8 % (11.5-14.5)
[2019-11-18 18:27] LABS: ALBUMIN 1.9 g/dL (3.4-5.0); BILIRUBIN,TOTAL 0.7 mg/dL (0.1-1.0); CALCIUM, TOTAL 10.2 mg/dL (8.8-10.5); CREATININE 1.09 mg/dL (0.60-1.30); POTASSIUM 4.3 mmol/L (3.5-5.1); TOTAL PROTEIN, SERUM 5.8 g/dL (6.4-8.2)
[2019-11-18 18:48] LABS: NEUTROPHILS % (AUTO) 95.4 % (40.0-70.0)
[2019-11-18] MEDS: INSULIN LISPRO 100 UNITS/ML SQ PRN ×2 (18:52→21:00)
[2019-11-18] MEDS ORDERED: HALOPERIDOL LACTATE 5 MG/ML VIAL IVP PRN (20:00)
[2019-11-18 20:05] VITALS: BP 121/79
[2019-11-18] MEDS: ONDANSETRON HCL 4 MG/2 ML VIAL IVP PRN (20:47)
[2019-11-18] MEDS ORDERED: AMIODARONE HCL 540 MG in DEXTROSE 5%-WATER 239.2 ML IV ONE (22:10)
[2019-11-18 23:42] VITALS: BP 128/69
[2019-11-19] MEDS: ALBUTEROL SULFATE 2.5 MG/0.5 ML NEB SOLUTION NEB SCH ×7 (00:06→23:30)
[2019-11-19] MEDS: IPRATROPIUM BROMIDE 0.5 MG/2.5 ML NEB SOLUTION NEB SCH ×7 (00:06→23:31)
[2019-11-19] MEDS: MORPHINE SULFATE 2 MG/ML SYRINGE IVP PRN ×4 (02:06→21:17)
[2019-11-19 05:28] VITALS: BP 106/57
[2019-11-19] MEDS: INSULIN LISPRO 100 UNITS/ML SQ PRN ×4 (06:17→22:37)
[2019-11-19 07:34] VITALS: BP 140/104
[2019-11-19] MEDS: ACETYLCYSTEINE 10% 100 MG/ML 4 ML NEB SOLUTION NEB SCH ×4 (08:05→20:26)
[2019-11-19] MEDS: BENZONATATE 100 MG CAPSULE PO SCH ×2 (08:27→16:25)
[2019-11-19] MEDS: OMEPRAZOLE 20 MG CAPSULE PO SCH (08:28)
[2019-11-19] MEDS: ATORVASTATIN CALCIUM 20 MG TABLET PO SCH (08:28)
[2019-11-19] MEDS: AmLODIPine BESYLATE 10 MG TABLET PO SCH (08:28)
[2019-11-19] MEDS: DOCUSATE SODIUM 100 MG CAPSULE PO SCH ×3 (08:29→21:31)
[2019-11-19] MEDS: GuaiFENesin SR 600 MG ER TABLET PO SCH ×2 (08:29→21:32)
[2019-11-19] MEDS: MethylPREDNISolone SOD SUCC 40 MG/ML VIAL IVP SCH ×2 (08:30→21:30)
[2019-11-19] MEDS: HEPARIN SODIUM,PORCINE 5,000 UNITS/ML VIAL SQ SCH ×2 (08:31→16:25)
[2019-11-19] MEDS: CefTRIAXone 1 GM/DEXTROSE 50 ML IV SCH (10:02)
[2019-11-19 10:59] LABS: HEMOGLOBIN 11.6 g/dL (12.0-16.0); MEAN CORPUSCULAR HEMOGLOBIN 29.2 pg (26.0-34.0); MEAN CORPUSCULAR VOLUME 88 fL (80-100); PLATELET COUNT (AUTO) 154 K/uL (150-450); RED BLOOD CELL COUNT(AUTO) 3.97 MIL/uL (4.00-5.20); RED CELL DISTRIBUTION WIDTH 15.3 % (11.5-14.5)
[2019-11-19 11:19] VITALS: BP 134/62
[2019-11-19] MEDS: AZITHROMYCIN 500 MG/NS 250 ML IV SCH (11:23)
[2019-11-19 11:56] LABS: BAND NEUTROPHILS % (MANUAL) 1 % (0-5); LYMPHOCYTES % (MANUAL) 4 % (22-44); MONOCYTES % (MANUAL) 2 % (2-9); MYELOCYTES % 1 % (0-0); SEGMENTED NEUTROPHILS % 92 % (40-70)
[2019-11-19 12:11] LABS: ALBUMIN 1.7 g/dL (3.4-5.0); BILIRUBIN,TOTAL 0.8 mg/dL (0.1-1.0); CALCIUM, TOTAL 10.2 mg/dL (8.8-10.5); CREATININE 1.04 mg/dL (0.60-1.30); TOTAL PROTEIN, SERUM 5.4 g/dL (6.4-8.2)
[2019-11-19 12:19] LABS: GLUCOMETER DEV NAME(LOC) 5N.2; GLUCOSE,POINT OF CARE 399 MG/DL (70-110)
[2019-11-19 12:19] LABS: GLUCOMETER DEV NAME(LOC) 5N.2; GLUCOSE,POINT OF CARE 461 MG/DL (70-110)
[2019-11-19 15:55] VITALS: BP 146/61
[2019-11-19] MEDS: AMIODARONE HCL 750 MG in DEXTROSE 5%-WATER 485 ML IV SCH (16:19)
[2019-11-19 17:30] LABS: GLUCOMETER DEV NAME(LOC) 5S.2A; GLUCOSE,POINT OF CARE 209 MG/DL (70-110)
[2019-11-19 17:30] LABS: GLUCOMETER DEV NAME(LOC) 5S.2A; GLUCOSE,POINT OF CARE 314 MG/DL (70-110)
[2019-11-19 17:30] LABS: GLUCOMETER DEV NAME(LOC) 5S.2A; GLUCOSE,POINT OF CARE 202 MG/DL (70-110)
[2019-11-19 19:52] VITALS: BP 129/68
[2019-11-19 19:53] LABS: ABG A-A DIFF O2 606.2 mmHg (10-20.0); ABG BASE EXCESS 4.7 mmol/L (-2.0-3.0); ABG CARBOXYHEMOGLOBIN 0.7 % (0.0-1.5); ABG HCO3 28.3 mmol/L (22.0-26.0); ABG METHEMOGLOBIN 0.3 % (0.0-1.5); ABG OXYGEN SATURATION 93.7 % (95.0-98.0); ABG OXYHEMOGLOBIN 92.8 % (94.0-100.0); SOURCE, BLOOD GAS ARTERIAL; TEMPERATURE, FAHRENHEIT, BG 98.6 FAHREN (96.0-98.6)
[2019-11-19 19:54] LABS: ABG PCO2 41 mmHg (35-45); ABG TOTAL HEMOGLOBIN 12.7 G/dL (12.0-18.0); PO2, ARTERIAL BG 65.7 mmHg (71.0-79.0); SITE, BLOOD GAS RT RADIAL
[2019-11-19 19:55] LABS: ABG OXYGEN CONTENT 16.6 mL/dL (15.0-23.0); O2 DEVICE,BLOOD GAS HI FL CANNULA (ROOM AIR)
[2019-11-20] VITALS (8 sets, daily range): BP systolic 105–158; BP diastolic 39–77
[2019-11-20] MEDS: MORPHINE SULFATE 2 MG/ML SYRINGE IVP PRN (01:13)
[2019-11-20] MEDS: HEPARIN SODIUM,PORCINE 5,000 UNITS/ML VIAL SQ SCH ×3 (01:13→16:15)
[2019-11-20] MEDS: BENZONATATE 100 MG CAPSULE PO SCH ×3 (01:13→16:14)
[2019-11-20 02:17] LABS: GLUCOMETER DEV NAME(LOC) 5S.2A; GLUCOSE,POINT OF CARE 241 MG/DL (70-110)
[2019-11-20] MEDS: ALBUTEROL SULFATE 2.5 MG/0.5 ML NEB SOLUTION NEB SCH ×6 (03:37→22:02)
[2019-11-20] MEDS: IPRATROPIUM BROMIDE 0.5 MG/2.5 ML NEB SOLUTION NEB SCH ×6 (03:37→22:02)
[2019-11-20] MEDS ORDERED: SODIUM CHLORIDE 0.9% 100 ML ONE (03:57)
[2019-11-20] MEDS ORDERED: IOVERSOL 350 MG/ML 100 ML VIAL ONE (03:57)
[2019-11-20] MEDS ORDERED: RAPID SEQUENCE KIT [RSI] 1 EACH KIT ONE (05:23)
[2019-11-20] MEDS ORDERED: SUCCINYLCHOLINE CHLORIDE 20 MG/ML 10 ML VIAL ONE (05:24)
[2019-11-20 05:56] LABS: HEMATOCRIT 37.8 % (36-46); HEMOGLOBIN 12.3 g/dL (12.0-16.0); MEAN CORPUSCULAR HEMOGLOBIN 29.2 pg (26.0-34.0); MEAN CORPUSCULAR HGB CONC 32.6 G/dL (31.0-37.0); MEAN CORPUSCULAR VOLUME 90 fL (80-100); PLATELET COUNT (AUTO) 121 K/uL (150-450); RED BLOOD CELL COUNT(AUTO) 4.22 MIL/uL (4.00-5.20); RED CELL DISTRIBUTION WIDTH 15.6 % (11.5-14.5)
[2019-11-20] MEDS ORDERED: MIDAZOLAM HCL 2 MG/2 ML VIAL IVP ONE (06:00)
[2019-11-20] MEDS: PROPOFOL 1000 MG/ISO-OSM 100 ML IV PRN ×3 (06:02→18:28)
[2019-11-20 06:10] LABS: ALBUMIN 1.6 g/dL (3.4-5.0); BILIRUBIN,TOTAL 1.1 mg/dL (0.1-1.0); CALCIUM, TOTAL 9.9 mg/dL (8.8-10.5); CREATININE 0.96 mg/dL (0.60-1.30); POTASSIUM 4.3 mmol/L (3.5-5.1); TOTAL PROTEIN, SERUM 5.4 g/dL (6.4-8.2)
[2019-11-20 06:11] LABS: ABG A-A DIFF O2 603.1 mmHg (10-20.0); ABG BASE EXCESS 2.3 mmol/L (-2.0-3.0); ABG CARBOXYHEMOGLOBIN 0.7 % (0.0-1.5); ABG HCO3 25.4 mmol/L (22.0-26.0); ABG METHEMOGLOBIN 0.3 % (0.0-1.5); ABG OXYGEN SATURATION 86.2 % (95.0-98.0); ABG OXYHEMOGLOBIN 85.3 % (94.0-100.0); SOURCE, BLOOD GAS ARTERIAL; TEMPERATURE, FAHRENHEIT, BG 99.2 FAHREN (96.0-98.6)
[2019-11-20 06:12] LABS: ABG OXYGEN CONTENT 16.2 mL/dL (15.0-23.0); ABG PCO2 53 mmHg (35-45); ABG PH 7.344 (7.35-7.450); ABG TOTAL HEMOGLOBIN 13.5 G/dL (12.0-18.0); O2 DEVICE,BLOOD GAS VENTILATOR (ROOM AIR); PO2, ARTERIAL BG 54.7 mmHg (71.0-79.0); SITE, BLOOD GAS RT RADIAL; VT, ABG 450 ml
[2019-11-20 06:13] LABS: PEEP,BG 5 cm H2O; SPONTANEOUS VT, BG 415 ml
[2019-11-20 06:58] LABS: BAND NEUTROPHILS % (MANUAL) 18 % (0-5); LYMPHOCYTES % (MANUAL) 1 % (22-44); MONOCYTES % (MANUAL) 2 % (2-9); SEGMENTED NEUTROPHILS % 79 % (40-70)
[2019-11-20] MEDS ORDERED: SODIUM CHLORIDE 0.9% 500 ML IV ONE ×3 (08:35→10:30)
[2019-11-20] MEDS ORDERED: *CLINICAL-CEFEPIME DOSING CLINICAL ONE (08:45)
[2019-11-20] MEDS: OMEPRAZOLE 20 MG CAPSULE PO SCH (09:00)
[2019-11-20] MEDS: ATORVASTATIN CALCIUM 20 MG TABLET PO SCH (09:00)
[2019-11-20] MEDS: GuaiFENesin SR 600 MG ER TABLET PO SCH ×2 (09:00→20:28)
[2019-11-20] MEDS: DOCUSATE SODIUM 100 MG CAPSULE PO SCH ×2 (09:00→20:29)
[2019-11-20] MEDS: ACETYLCYSTEINE 10% 100 MG/ML 4 ML NEB SOLUTION NEB SCH ×2 (09:00→12:27)
[2019-11-20] MEDS: AmLODIPine BESYLATE 10 MG TABLET PO SCH (09:00)
[2019-11-20] MEDS: MethylPREDNISolone SOD SUCC 40 MG/ML VIAL IVP SCH ×2 (09:05→20:29)
[2019-11-20] MEDS: FentaNYL CITRATE PF 500 MCG in DEXTROSE 5%-WATER 90 ML IV PRN (09:23)
[2019-11-20] MEDS ORDERED: VANCOMYCIN HCL 1.5 GM in DEXTROSE 5%-WATER 250 ML IV ONE (10:00)
[2019-11-20] MEDS: NOREPINEPHRINE 4 MG/D5%-WATER 250 ML IV PRN (10:45)
[2019-11-20] MEDS: CEFEPIME HCL 2 GM in DEXTROSE 5%-WATER 50 ML IV SCH (11:23)
[2019-11-20] MEDS: ALBUMIN HUMAN 25%-25GM/100ML 100 ML IV SCH ×2 (11:25→19:42)
[2019-11-20] MEDS ORDERED: SODIUM CHLORIDE 0.9% 250 ML IV ONE (11:28)
[2019-11-20] MEDS: INSULIN LISPRO 100 UNITS/ML SQ PRN ×2 (13:09→18:01)
[2019-11-20 13:13] LABS: ABG A-A DIFF O2 598.3 mmHg (10-20.0); ABG BASE EXCESS -0.8 mmol/L (-2.0-3.0); ABG CARBOXYHEMOGLOBIN 0.3 % (0.0-1.5); ABG HCO3 23.9 mmol/L (22.0-26.0); ABG METHEMOGLOBIN 0.3 % (0.0-1.5); ABG OXYGEN SATURATION 95.6 % (95.0-98.0); SOURCE, BLOOD GAS ARTERIAL; TEMPERATURE, FAHRENHEIT, BG 97.5 FAHREN (96.0-98.6)
[2019-11-20 13:16] LABS: ABG PH 7.416 (7.35-7.450); SITE, BLOOD GAS ARTERIAL LINE
[2019-11-20 13:17] LABS: ABG PCO2 38 mmHg (35-45); ABG TOTAL HEMOGLOBIN 10.4 G/dL (12.0-18.0); PO2, ARTERIAL BG 78.5 mmHg (71.0-79.0)
[2019-11-20 13:18] LABS: O2 DEVICE,BLOOD GAS VENTILATOR (ROOM AIR); PEEP,BG 8 cm H2O; VENT MODE, BG AV (ROOM AIR); VT, ABG 450 ml
[2019-11-20] MEDS: AMIODARONE HCL 750 MG in DEXTROSE 5%-WATER 485 ML IV SCH (16:16)
[2019-11-20 16:31] LABS: GLUCOSE,POINT OF CARE 353 MG/DL (70-110)
[2019-11-20] MEDS: VANCOMYCIN HCL 750 MG in DEXTROSE 5%-WATER 250 ML IV SCH (19:42)
[2019-11-20 23:11] LABS: ABG A-A DIFF O2 626.8 mmHg (10-20.0); ABG CARBOXYHEMOGLOBIN 0.1 % (0.0-1.5); ABG METHEMOGLOBIN 0.3 % (0.0-1.5); ABG OXYGEN SATURATION 86.8 % (95.0-98.0); ABG OXYHEMOGLOBIN 86.5 % (94.0-100.0); SOURCE, BLOOD GAS ARTERIAL; TEMPERATURE, FAHRENHEIT, BG 98.6 FAHREN (96.0-98.6)
[2019-11-20 23:12] LABS: ABG OXYGEN CONTENT 10.7 mL/dL (15.0-23.0); ABG PCO2 33 mmHg (35-45); ABG TOTAL HEMOGLOBIN 8.8 G/dL (12.0-18.0); O2 DEVICE,BLOOD GAS VENTILATOR (ROOM AIR); SITE, BLOOD GAS ARTERIAL LINE
[2019-11-20 23:13] LABS: PEEP,BG 8 cm H2O; VT, ABG 450 ml
[2019-11-20] MEDS ORDERED: 0.9% SODIUM CHLORIDE 15 ML NEB SOLUTION NEB ONE (23:18)
[2019-11-21] VITALS: BP 147/51
[2019-11-21] MEDS: HEPARIN SODIUM,PORCINE 5,000 UNITS/ML VIAL SQ SCH ×3 (00:41→16:15)
[2019-11-21] MEDS: BENZONATATE 100 MG CAPSULE PO SCH ×3 (00:41→16:15)
[2019-11-21] MEDS: FentaNYL CITRATE PF 500 MCG in DEXTROSE 5%-WATER 90 ML IV PRN ×3 (00:43→22:02)
[2019-11-21] MEDS: INSULIN LISPRO 100 UNITS/ML SQ PRN ×4 (00:45→18:25)
[2019-11-21] MEDS: PROPOFOL 1000 MG/ISO-OSM 100 ML IV PRN ×5 (01:20→18:23)
[2019-11-21] MEDS: ALBUTEROL SULFATE 2.5 MG/0.5 ML NEB SOLUTION NEB SCH ×6 (02:41→22:12)
[2019-11-21] MEDS: IPRATROPIUM BROMIDE 0.5 MG/2.5 ML NEB SOLUTION NEB SCH ×6 (02:41→22:12)
[2019-11-21 03:27] LABS: GLUCOSE,POINT OF CARE 327 MG/DL (70-110)
[2019-11-21 03:27] LABS: GLUCOSE,POINT OF CARE 317 MG/DL (70-110)
[2019-11-21 04:00] VITALS: BP 143/49
[2019-11-21] MEDS: ALBUMIN HUMAN 25%-25GM/100ML 100 ML IV SCH ×3 (04:08→18:27)
[2019-11-21 05:46] LABS: BASOPHILS % (AUTO) 0.2 % (0.0-2.0); EOSINOPHILS % (AUTO) 0 % (1.0-6.0); HEMATOCRIT 28.4 % (36-46); HEMOGLOBIN 9.6 g/dL (12.0-16.0); LYMPHOCYTES # (AUTO) 0.1 K/uL (1.0-4.8); LYMPHOCYTES % (AUTO) 0.7 % (22.0-44.0); MEAN CORPUSCULAR HGB CONC 33.8 G/dL (31.0-37.0); MEAN CORPUSCULAR VOLUME 89 fL (80-100); MONOCYTES # (AUTO) 0.2 K/uL (0.1-1.0); NEUTROPHILS # (AUTO) 18.4 K/uL (1.8-7.7); RED BLOOD CELL COUNT(AUTO) 3.21 MIL/uL (4.00-5.20); RED CELL DISTRIBUTION WIDTH 15.3 % (11.5-14.5)
[2019-11-21 06:02] LABS: NEUTROPHILS % (AUTO) 98.1 % (40.0-70.0)
[2019-11-21 06:03] LABS: PLATELET COUNT (AUTO) 66 K/uL (150-450)
[2019-11-21 06:04] LABS: ALBUMIN 2.5 g/dL (3.4-5.0); BILIRUBIN,TOTAL 1.2 mg/dL (0.1-1.0); CALCIUM, TOTAL 9.6 mg/dL (8.8-10.5); CREATININE 0.94 mg/dL (0.60-1.30); POTASSIUM 3.9 mmol/L (3.5-5.1); TOTAL PROTEIN, SERUM 5.2 g/dL (6.4-8.2)
[2019-11-21] MEDS: VANCOMYCIN HCL 750 MG in DEXTROSE 5%-WATER 250 ML IV SCH ×2 (06:25→19:16)
[2019-11-21 06:56] LABS: GLUCOSE,POINT OF CARE 301 MG/DL (70-110)
[2019-11-21 08:00] VITALS: BP 134/50
[2019-11-21] MEDS: GuaiFENesin SR 600 MG ER TABLET PO SCH ×2 (08:55→20:49)
[2019-11-21] MEDS: AmLODIPine BESYLATE 10 MG TABLET PO SCH (08:56)
[2019-11-21] MEDS: OMEPRAZOLE 20 MG CAPSULE PO SCH (08:56)
[2019-11-21] MEDS: DOCUSATE SODIUM 100 MG CAPSULE PO SCH ×2 (08:56→20:48)
[2019-11-21] MEDS: MethylPREDNISolone SOD SUCC 40 MG/ML VIAL IVP SCH ×2 (08:57→20:48)
[2019-11-21] MEDS: CEFEPIME HCL 2 GM in DEXTROSE 5%-WATER 50 ML IV SCH (08:58)
[2019-11-21] MEDS: ATORVASTATIN CALCIUM 20 MG TABLET PO SCH (09:06)
[2019-11-21] MEDS ORDERED: AMIODARONE HCL 200 MG TABLET PO ONE (11:00)
[2019-11-21 12:00] VITALS: BP 130/45
[2019-11-21 13:42] LABS: ABG A-A DIFF O2 610.1 mmHg (10-20.0); ABG BASE EXCESS -0.1 mmol/L (-2.0-3.0); ABG CARBOXYHEMOGLOBIN 0.3 % (0.0-1.5); ABG HCO3 24.5 mmol/L (22.0-26.0); ABG METHEMOGLOBIN 0.3 % (0.0-1.5); ABG OXYGEN SATURATION 92.5 % (95.0-98.0); ABG OXYHEMOGLOBIN 91.9 % (94.0-100.0); SOURCE, BLOOD GAS ARTERIAL; TEMPERATURE, FAHRENHEIT, BG 98.8 FAHREN (96.0-98.6)
[2019-11-21 13:45] LABS: SITE, BLOOD GAS ARTERIAL LINE
[2019-11-21 13:46] LABS: ABG OXYGEN CONTENT 12.9 mL/dL (15.0-23.0); ABG PCO2 37 mmHg (35-45); ABG PH 7.435 (7.35-7.450); ABG TOTAL HEMOGLOBIN 9.9 G/dL (12.0-18.0); O2 DEVICE,BLOOD GAS VENTILATOR (ROOM AIR); PEEP,BG 10 cm H2O; VT, ABG 450 ml
[2019-11-21 16:00] VITALS: BP 131/49
[2019-11-21 18:27] LABS: GLUCOSE,POINT OF CARE 264 MG/DL (70-110)
[2019-11-21] MEDS: NOREPINEPHRINE 4 MG/D5%-WATER 250 ML IV PRN (18:27)
[2019-11-21 20:00] VITALS: BP 145/52
[2019-11-21] MEDS: AMIODARONE HCL 200 MG TABLET PO SCH (20:49)
[2019-11-21 22:22] LABS: GLUCOSE,POINT OF CARE 255 MG/DL (70-110)
[2019-11-22] VITALS: BP 154/56
[2019-11-22] MEDS: BENZONATATE 100 MG CAPSULE PO SCH ×3 (00:29→16:00)
[2019-11-22] MEDS: PROPOFOL 1000 MG/ISO-OSM 100 ML IV PRN ×3 (00:29→08:33)
[2019-11-22] MEDS: INSULIN LISPRO 100 UNITS/ML SQ PRN ×3 (00:31→12:41)
[2019-11-22] MEDS: ALBUTEROL SULFATE 2.5 MG/0.5 ML NEB SOLUTION NEB SCH ×4 (02:10→15:00)
[2019-11-22] MEDS: IPRATROPIUM BROMIDE 0.5 MG/2.5 ML NEB SOLUTION NEB SCH ×4 (02:10→15:00)
[2019-11-22] MEDS: ALBUMIN HUMAN 25%-25GM/100ML 100 ML IV SCH ×2 (03:07→12:16)
[2019-11-22 04:00] VITALS: BP 151/56
[2019-11-22 05:05] LABS: HEMOGLOBIN 9.7 g/dL (12.0-16.0); MEAN CORPUSCULAR HEMOGLOBIN 29.6 pg (26.0-34.0); MEAN CORPUSCULAR HGB CONC 33.4 G/dL (31.0-37.0); MEAN CORPUSCULAR VOLUME 89 fL (80-100); PLATELET COUNT (AUTO) 49 K/uL (150-450); RED BLOOD CELL COUNT(AUTO) 3.28 MIL/uL (4.00-5.20); RED CELL DISTRIBUTION WIDTH 15.6 % (11.5-14.5)
[2019-11-22 05:22] LABS: ALANINE AMINOTRANSFERASE 21 U/L (12-78); ALBUMIN 3.1 g/dL (3.4-5.0); ALKALINE PHOSPHATASE 58 U/L (46-116); ANION GAP 7 mmol/L (8-16); ASPARTATE AMINOTRANSFERASE 9 U/L (15-37); BILIRUBIN,TOTAL 1.5 mg/dL (0.1-1.0); CALCIUM, TOTAL 10.3 mg/dL (8.8-10.5); CARBON DIOXIDE 28 mmol/L (22-29); CHLORIDE 98 mmol/L (98-107); CREATININE 0.89 mg/dL (0.60-1.30); GLOMERULAR FILTR. RATE CALC > 60 mL/min (>60); GLUCOSE,RANDOM 258 mg/dL (70-110); POTASSIUM 3.7 mmol/L (3.5-5.1); SODIUM SERUM 133 mmol/L (136-145); TOTAL PROTEIN, SERUM 5.5 g/dL (6.4-8.2); UREA NITROGEN, BLOOD 27 mg/dL (7-18)
[2019-11-22] MEDS ORDERED: SODIUM CHLORIDE 0.9% 250 ML IV ONE (06:16)
[2019-11-22] MEDS: VANCOMYCIN HCL 750 MG in DEXTROSE 5%-WATER 250 ML IV SCH (06:52)
[2019-11-22 07:03] LABS: GLUCOSE,POINT OF CARE 264 MG/DL (70-110)
[2019-11-22 07:03] LABS: GLUCOSE,POINT OF CARE 278 MG/DL (70-110)
[2019-11-22 08:00] VITALS: BP 130/46
[2019-11-22] MEDS: HEPARIN SODIUM,PORCINE 5,000 UNITS/ML VIAL SQ SCH ×3 (08:41→16:00)
[2019-11-22] MEDS: FentaNYL CITRATE PF 500 MCG in DEXTROSE 5%-WATER 90 ML IV PRN (08:41)
[2019-11-22] MEDS: GuaiFENesin SR 600 MG ER TABLET PO SCH (09:00)
[2019-11-22] MEDS: AmLODIPine BESYLATE 10 MG TABLET PO SCH (09:00)
[2019-11-22] MEDS: DOCUSATE SODIUM 100 MG CAPSULE PO SCH (09:00)
[2019-11-22 09:25] LABS: BAND NEUTROPHILS % (MANUAL) 18 % (0-5); LYMPHOCYTES % (MANUAL) 2 % (22-44); MONOCYTES % (MANUAL) 2 % (2-9); SEGMENTED NEUTROPHILS % 78 % (40-70)
[2019-11-22] MEDS: ATORVASTATIN CALCIUM 20 MG TABLET PO SCH (09:31)
[2019-11-22] MEDS: MethylPREDNISolone SOD SUCC 40 MG/ML VIAL IVP SCH (09:31)
[2019-11-22] MEDS: AMIODARONE HCL 200 MG TABLET PO SCH (09:31)
[2019-11-22] MEDS: OMEPRAZOLE 20 MG CAPSULE PO SCH (09:37)
[2019-11-22] MEDS: CEFEPIME HCL 2 GM in DEXTROSE 5%-WATER 50 ML IV SCH (09:38)
[2019-11-22 12:00] VITALS: BP 121/38
[2019-11-22] MEDS ORDERED: MetroNIDAZOLE 500 MG/NACL 100 ML IV SCH (12:00)
[2019-11-22 15:27] LABS: GLUCOSE,POINT OF CARE 237 MG/DL (70-110)
[2019-11-22 16:00] VITALS: BP 118/42
[2019-11-22] MEDS ORDERED: MORPHINE SULFATE 2 MG/ML SYRINGE IVP ONE (16:15)
[2019-11-22] MEDS ORDERED: MORPHINE SULFATE 100 MG/NS/PF 100 ML IV PRN (16:15)
[2019-11-22] MEDS ORDERED: LORazepam 2 MG/ML VIAL IVP PRN (16:15)
[2019-11-23 18:23] LABS: PO2, ARTERIAL BG 65.8 mmHg (71.0-79.0)
== END 2019-11-22 18:17 | disposition expired | DRG 208 ==
LOC: EMS 08:23 → 5S 15:01 → ICU 11-08 22:50 → 5S 11-12 17:00 → ICU 11-20 01:01
PROVIDERS: ADMIT Hospitalist; ATTEND Hospitalist
PROC: 5A09357 Assistance with Respiratory Ventilation, Less than 24 Consecutive Hours, Continuous Positive Airway Pressure (ICD-10-PCS; 2019-11-08)
PROC: 0W9B00Z Drainage of Left Pleural Cavity with Drainage Device, Open Approach (ICD-10-PCS; 2019-11-10)
PROC: 0W9900Z Drainage of Right Pleural Cavity with Drainage Device, Open Approach (ICD-10-PCS; 2019-11-10)
PROC: 5A1945Z Respiratory Ventilation, 24-96 Consecutive Hours (ICD-10-PCS; principal; 2019-11-20)
PROC: 0B9B8ZZ Drainage of Left Lower Lobe Bronchus, Via Natural or Artificial Opening Endoscopic (ICD-10-PCS; 2019-11-20)
PROC: 0B988ZZ Drainage of Left Upper Lobe Bronchus, Via Natural or Artificial Opening Endoscopic (ICD-10-PCS; 2019-11-20)
PROC: 0B968ZZ Drainage of Right Lower Lobe Bronchus, Via Natural or Artificial Opening Endoscopic (ICD-10-PCS; 2019-11-20)
PROC: 04HY32Z Insertion of Monitoring Device into Lower Artery, Percutaneous Approach (ICD-10-PCS; 2019-11-20)
PROC: 4A133B1 Monitoring of Arterial Pressure, Peripheral, Percutaneous Approach (ICD-10-PCS; 2019-11-20)
PROC: 4A133J1 Monitoring of Arterial Pulse, Peripheral, Percutaneous Approach (ICD-10-PCS; 2019-11-20)
PROC: 06HM33Z Insertion of Infusion Device into Right Femoral Vein, Percutaneous Approach (ICD-10-PCS; 2019-11-20)
PROC: B54BZZA Ultrasonography of Right Lower Extremity Veins, Guidance (ICD-10-PCS; 2019-11-20)
DX: J18.9 Pneumonia, unspecified organism (principal); J96.01 Acute respiratory failure with hypoxia; N17.0 Acute kidney failure with tubular necrosis; J93.9 Pneumothorax, unspecified; R65.10 Systemic inflammatory response syndrome (SIRS) of non-infectious origin without acute organ dysfunction; E78.5 Hyperlipidemia, unspecified; I10 Essential (primary) hypertension; K21.9 Gastro-esophageal reflux disease without esophagitis; F03.90 Unspecified dementia, unspecified severity, without behavioral disturbance, psychotic disturbance, mood disturbance, and anxiety; I48.91 Unspecified atrial fibrillation; E11.9 Type 2 diabetes mellitus without complications; G25.81 Restless legs syndrome; D72.823 Leukemoid reaction; J43.9 Emphysema, unspecified; Z99.81 Dependence on supplemental oxygen; Z83.3 Family history of diabetes mellitus; Z82.5 Family history of asthma and other chronic lower respiratory diseases; Z82.49 Family history of ischemic heart disease and other diseases of the circulatory system; Z87.891 Personal history of nicotine dependence
CPT/HCPCS: 31624; 36600; 71250; 71275; 82805; 83605; 83735; 84145; 87015; 87040; 87070; 87081; 87101; 87205; 87206; 87220; 87252; 87804; 88108; 88312; 93005; 93306; 94002; 94003; 94640; 94660; 97166; 97535; G0378; J0282; J0330; J0456; J0692; J0696; J1160; J1170; J1630; J1644; J2001; J2060; J2250; J2270; J2310; J2405; J2704; J2920; J2930; J3010; J3370; J3490; J7040; J7050; J7060; P9046